=== PATIENT | male | born 1960 | race Caucasian/White ===

== ENCOUNTER 2017-04-23 07:45 | Day surgery (SDC) | payer BC ==
[2017-04-23 08:42] VITALS: BMI 32.5
[2017-04-23] MEDS ORDERED: Iodixanol 320 MG/ML 200 ML BOTTLE IV ONE (09:00)
[2017-04-23 09:01] LABS: PROTHROMBIN TIME 11.2 SECONDS (9.7-12.2)
[2017-04-23] MEDS ORDERED: Lidocaine 2% Inj (20ml) ONE (09:04)
[2017-04-23] MEDS ORDERED: Midazolam 2 MG/2 ML VIAL ONE (09:19)
[2017-04-23] MEDS ORDERED: Sodium Chloride 0.9% 1,000 ML IV SCH (10:15)
[2017-04-23] MEDS ORDERED: Sodium Chloride 0.9% 1,000 ML IV ONE (12:02)
[2017-04-23 14:23] VITALS: O2SAT 95
[2017-04-23 16:22] VITALS: BP 113/65; PULSE 82; RESP 16; TEMP 97.2
--- NOTE | 2017-04-26 10:41 | CARDCATH ---
PROCEDURE DATE: 04/23/2017 PROCEDURES: 1. Left heart catheterization. 2. Coronary angiogram. 3. RACHEL angiogram. 4. SVG graft angiogram. 5. Radiological supervision and radiological interpretation of the cardiac catheterization. CLINICAL INDICATIONS: 1. Chest pain. 2. Abnormal stress test. 3. Hypertension. 4. Hyperlipidemia. 5. History of CABG x3 in 2016. REFERRING PHYSICIAN: Gabriel Nguyen MD PERFORMING PHYSICIAN: Hans Singh MD PROCEDURE: After informed consent, the patient was prepped and draped in the usual sterile fashion. A 2% lidocaine was given in the right groin for local anesthesia. Using micropuncture technique, a 6-Irish sheath was introduced into right common femoral artery. A JL4, 6-Irish diagnostic catheter was engaged into left main coronary artery. Contrast injected and left coronary angiogram was performed. Using the JR4 diagnostic catheter, right coronary angiogram, saphenous venous graft angiogram and RACHEL angiogram were performed. Then JR4 diagnostic catheter was passed into the left ventricle across the aortic valve. Contrast injected and LV angiogram was performed. LVEDP and pressure gradient across the aortic valve were measured. The patient tolerated the procedure well. FINDINGS: 1. Left main coronary artery is patent. 2. Proximal LAD is patent, mid to distal LAD has diffuse 90% stenosis. D1 diagonal artery has 100% occlusion. 3. Left circumflex coronary artery is patent, however, large obtuse marginal branch has 100% occlusion. 4. Right coronary artery is totally occluded at the ostium. There is in-stent restenosis. The patient has left to right collaterals. 5. Saphenous vein graft to diagonal branch is patent. 6. Saphenous vein graft to obtuse marginal 1 artery is patent. 7. RACHEL to LAD graft is patent. 8. LV ejection fraction is approximately 60%. No wall motion abnormalities detected. EDP is 15. No gradient across the aortic valve. CONCLUSION: 1. CAD, status post CABG x3. All the 3 grafts are patent. 2. Right coronary artery is 100% occluded. There are left to right collaterals. RECOMMENDATION: The patient is asymptomatic on optimal medical therapy. Continue medical therapy. However, the patient has symptoms, considered intervening right coronary artery. Hans Singh MD [facility] # [id number]
== END 2017-04-23 16:44 | disposition home or self-care (01) ==
LOC: C.CATHLAB 07:45
PROVIDERS: ATTEND Internal Medicine Cardiovascular Disease
DX: R07.9 Chest pain, unspecified (principal); R94.39 Abnormal result of other cardiovascular function study; I10 Essential (primary) hypertension; Z95.1 Presence of aortocoronary bypass graft; E78.5 Hyperlipidemia, unspecified; I25.10 Atherosclerotic heart disease of native coronary artery without angina pectoris; R06.02 Shortness of breath; F17.210 Nicotine dependence, cigarettes, uncomplicated
CPT/HCPCS: 36415; 85610; 85730; 93459; C1769; C1887; C1893; J1644; J2250; J3010; J7040; Q9966

== ENCOUNTER 2018-07-12 08:56 | Inpatient (IN) | payer BC ==
[2018-07-12 08:57] VITALS: BMI 32.5
--- NOTE | 2018-07-12 09:41 | C.PDOC ---
History Of Present Illness 58 y/o male presents to the ER requesting detox from ETOH and Nyquil. Patient states that he drinks ETOH and Nyquil everyday, and reports that he began to drink Nyquil so he can sleep at night (works long hours during the day). Eloisa ent denies suicidal/homicidal ideations, or current physical complaints. Patient has PMhx of HTN, CAD s/p CABG, and DM II. Time Seen by Provider: 07/12/18 09:08 Chief Complaint (Nursing): Substance Abuse History Per: Patient History/Exam Limitations: no limitations Onset/Duration Of Symptoms: Persistent Current Symptoms Are (Timing): Still Present Modifying Factor(s): Alcohol, Other (nyquil) Severity: Moderate Past Medical History Reviewed: Historical Data, Nursing Documentation, Vital Signs Vital Signs: Last Vital Signs Temp 97.6 F 07/12/18 09:01 Pulse 72 07/12/18 09:01 Resp 18 07/12/18 09:01 BP 150/92 H 07/12/18 09:01 Pulse Ox 97 07/12/18 09:01 Primary Care Provider: Gabriel Nguyen - Medical History PMH: Anemia, COPD, Diabetes, Hypercholesterolemia Surgical History: CABG (2013), Coronary Stent - [facility] Procedures CENTRAL VENOUS CATHETER PLACEMENT WITH GUIDANCE (12/01/13) CONTINUOUS INVASIVE MECHANICAL VENTILATION =/>96 CONSEC HRS (12/01/13) ENTERAL INFUSION OF CONCENTRATED NUT. SUBSTANCES (12/01/13) INFUSION OF VASOPRESSOR AGENT (12/01/13) INSERT ENDOTRACHEAL TUBE (12/01/13) PACKED CELL TRANSFUSION (12/01/13) PERCUTANEOUS ABDOMINAL DRAINAGE (12/01/13) SERUM TRANSFUSION NEC (12/01/13) Family History: States: No Known Family Hx - Social History Hx Tobacco Use: Yes Hx Alcohol Use: Yes (6-8 beers daily) Hx Substance Use: Yes (HX: ALCOHOL ABUSE) Review Of Systems Constitutional: Negative for: Fever, Chills Cardiovascular: Negative for: Chest Pain, Palpitations Respiratory: Negative for: Shortness of Breath Gastrointestinal: Negative for: Nausea, Vomiting, Abdominal Pain, Diarrhea Skin: Negative for: Rash Psych: Negative for: Suicidal ideation Physical Exam - Physical Exam Appears: Well, Non-toxic, No Acute Distress, Other ((+) ETOH on breath) Skin: Normal Color, Warm, Dry Head: Atraumatic, Normacephalic Eye(s): bilateral: Normal Inspection, PERRL, EOMI Oral Mucosa: Moist Neck: Supple Chest: Symmetrical Cardiovascular: Rhythm Regular Respiratory: Normal Breath Sounds, No Rales, No Rhonchi, No Wheezing Gastrointestinal/Abdominal: Normal Exam, Bowel Sounds, Soft, No Tenderness Extremity: Normal ROM, No Deformity Pulses: Left Dorsalis Pedis: Normal, Right Dorsalis Pedis: Normal Neurological/Psych: Oriented x3, Normal Speech, Other (no tremors ) ED Course And Treatment - Laboratory Results Result Diagrams: 07/26/18 13:52 07/26/18 13:52 ECG: Interpreted By Me, Viewed By Me (NSR 68 bpm, normal axis, RBBB, no acute ST/T wave changes) ECG Rhythm: Sinus Rhythm ECG Interpretation: No Acute Changes O2 Sat by Pulse Oximetry: 97 (RA) Pulse Ox Interpretation: Normal - Radiology CXR: Interpreted by Me, Viewed By Me CXR Interpretation: Yes: No Acute Disease. No: Infiltrates Progress Note: Blood work, UA, UDS, ECG, and CXR ordered and reviewed. 12:30- Patient medically cleared. 2:30pm- Patient is clinically sober at this time. Disposition - Disposition Disposition: HOSPITALIZED Disposition Time: 15:32 Condition: STABLE - Clinical Impression Clinical Impression: Alcohol dependence - Scribe Statement The provider has reviewed the documentation as recorded by the Hermelindaibsara Gonzalez Provider Attestation: All medical record entries made by the Scribe were at my direction and personally dictated by me. I have reviewed the chart and agree that the record accurately reflects my personal performance of the history, physical exam, medical decision making, and the department course for this patient. I have also personally directed, reviewed, and agree with the discharge instructions and disposition. Decision To Admit - Pt Status Changed To: Hospital Disposition Of: Inpatient - Admit Certification Admit to Inpatient:: After my assessment, the patient will require hospitalization for at least two midnights. This is because of the severity of symptoms shown, intensity of services needed, and/or the medical risk in this patient being treated as an outpatient. - InPatient: Physician Admission Certification: I certify that this patient requires 2 or more midnights of care for the following reason:: see notes - . Bed Request Type: Detox Admitting Physician: Flores Carney Patient Diagnosis: AA (alcohol abuse), Alcohol dependence
[2018-07-12 10:43] LABS: BASO % 0.8 % (0.0-2.0); EOS % 0.8 % (0.0-4.0); LYMPH % 28.3 % (20.0-40.0); MEAN CELL VOLUME 98.7 fL (80.0-94.0); MEAN CORPUSCULAR HEMOGLOBIN 34.4 pg (27.0-31.0); MEAN CORPUSCULAR HGB CONC 34.9 g/dL (33.0-37.0); MONO # 0.4 K/uL (0.0-0.8); MONO % 10.5 % (0.0-10.0); NEUT # 2.1 K/uL (1.8-7.0); NEUT % 59.6 % (50.0-75.0); NRBC % 0.2 % (0.0-2.0); RBC 4.57 Mil/uL (4.40-5.90); RED CELL DISTRIBUTION WIDTH 16.9 % (11.5-14.5); WHITE BLOOD COUNT 3.5 K/uL (4.8-10.8)
[2018-07-12 10:52] LABS: HEMOGLOBIN 15.7 g/dL (12.0-18.0)
[2018-07-12 11:07] LABS: ALB/GLOB RATIO 0.8 (1.0-2.1); ALBUMIN 4.1 g/dL (3.5-5.0); ALT/SGPT 119 U/L (21-72); AST/SGOT 335 U/L (17-59); BLOOD UREA NITROGEN 10 mg/dL (9-20); CALCIUM 8.1 mg/dl (8.6-10.4); GFR NON-AFRICAN AMERICAN > 60
[2018-07-12 11:26] LABS: SQUAMOUS EPITHIAL 1 /hpf (0-5); URINE BILIRUBIN 2+ (NEGATIVE); URINE BLOOD 1+ (NEGATIVE); URINE CLARITY Hazy (Clear); URINE COLOR Amber (YELLOW); URINE GLUCOSE (UA) NORMAL (Normal); URINE LEUKOCYTE ESTERASE NEG Leu/uL (Negative); URINE PROTEIN 1+ mg/dL (NEGATIVE)
--- NOTE | 2018-07-12 11:56 | RAD ---
Date of service: 07/12/2018 PROCEDURE: CHEST RADIOGRAPH, 1 VIEW HISTORY: MED CLEARANCE COMPARISON: 12/15/2013 FINDINGS: LUNGS: Clear. PLEURA: No pneumothorax or pleural fluid seen. CARDIOVASCULAR: No aortic atherosclerotic calcification present. Normal heart size. Sternotomy wires noted common not present on prior examination. Congestive change. OSSEOUS STRUCTURES: No significant abnormalities. VISUALIZED UPPER ABDOMEN: Normal. OTHER FINDINGS: None. IMPRESSION: No active disease.
[2018-07-12 12:03] LABS: BARBITURATES, UR NEGATIVE (NEGATIVE); BENZODIAZEPINES, UR NEGATIVE (NEGATIVE); OPIATES, UR NEGATIVE (NEGATIVE); PHENCYCLIDINE, UR NEGATIVE (NEGATIVE)
--- NOTE | 2018-07-12 15:49 | PCM.BM ---
Treatment Plan Problems - Problems identified on initial assessmt Defensive Coping Date Initiated: 07/12/18 Time Initiated: 15:49 Assessment reference: NA Status: Active Knowledge Deficit: Alcohol Use Date Initiated: 07/12/18 Time Initiated: 15:49 Assessment reference: NA Status: Active Denial Date Initiated: 07/12/18 Time Initiated: 15:49 Assessment reference: NA Status: Active Treatment assets and liabiliti Patient Assests: cooperative, negotiates basic needs Patient Liabilities: substance abuse - Milieu Protocol Maintain good personal hygiene: daily Encourage regular showers, daily Remind patient to perform daily oral care, daily Assist patient to perform ADL's Conduct patient checks and document Observation sheet: Q15 minutes Maintain personal safety: every shift Educate patient to report safety concerns to staff, every shift Monitor environment for contraband/sharps Medication safety: Monitor for expected outcome, potential side effects: every shift, Assess barriers to learning: every shift, Assess readiness for medication education: every shift
[2018-07-12] MEDS: Multiple Vitamins Tab PO SCH (17:31)
[2018-07-13] MEDS: Multiple Vitamins Tab PO SCH (09:31)
--- NOTE | 2018-07-13 11:07 | PCM.PSYCH ---
Initial Psychiatric Evaluation - Initial Psychiatric Evaluation Type of Admission: Voluntary Legal Status: Capacity Chief Complaint (in patient's own words): I came here to get help. History of Present Illness and Precipitating Events: Patient is a 58 year old male, who lives alone, came to the [facility] ED to get help in detox for NyQuil and alcohol. Patient denies any past history of any inpatient psychiatric complications. He denies any history of follow-up with any psychiatrist. He reports history of one detoxes at [facility] more than 7 years ago. Patient reports that he has been drinking alcohol and abusing increasing amount of NyQuil. He reports of drinking more than 3 glasses of wine and only 2 glasses of beers daily. He reports that yesterday consumed 2 glasses appears along with 2 bottles of NyQuil, started shaking and developed withdrawal symptoms, so he came to the [facility] to get help. Patient reports he has had a DUI in 1989. Patient reports his longest period of abstinence was 5 years. When asked about family history of substance abuse, patient stated "In [place], everyone drinks. My family and my friends." He reports withdrawal symptoms including anxiety, shakes, sweating, headaches and cramps. However he denies any evidence of hopelessness or helplessness. He denies any suicidal ideation for evaluation. He denies any auditory hallucinations or any paranoia. He reports of smoking marijuana in the past but denies any other substance abuse. Past medical history History of an unknown heart condition Current Medications: Active Medications Generic Name Dose Route Start Last Admin Trade Name Freq PRN Reason Stop Dose Admin Clonidine HCl 0.1 mg 07/12/18 17:13 Catapres PO Q4H PRN Symptoms of alcohol withdrawl Folic Acid 1 mg 07/12/18 17:15 07/13/18 09:31 Folic Acid PO 1 mg DAILY TEZ Administration Lorazepam 2 mg 07/12/18 17:50 07/13/18 07:51 Ativan PO 07/17/18 17:49 2 mg Q4 TEZ Administration Taper Lorazepam 1 mg 07/12/18 18:19 07/13/18 09:32 Ativan PO 1 mg Q4H PRN Administration Symptoms of alcohol withdrawl Multivitamins 1 tab 07/12/18 17:15 07/13/18 09:31 Hexavitamin PO 1 tab DAILY TEZ Administration Thiamine HCl 100 mg 07/12/18 17:15 07/13/18 09:31 Vitamin B1 Tab PO 100 mg DAILY TEZ Administration Trazodone HCl 50 mg 07/12/18 17:13 07/12/18 23:19 Desyrel PO 50 mg HS PRN Administration Insomnia Past Psychiatric History - Past Psychiatric History Previous Treatment History: Inpatient Pertinent Medical Hx (Current Medical&Sleep Prob, Allergies): Allergies Allergy/AdvReac Type Severity Reaction Status Date / Time No Known Allergies Allergy Unverified 12/01/13 07:01 Unobtainable 07/12/18 Review of Systems - Review of Systems All systems: reviewed and no additional remarkable complaints except - Psychiatric Psychiatric: Anxiety, Irritability. absent: Auditory Hallucinations, Suicidal Ideation Mental Status Examination - Personal Presentation Personal Presentation: Looks stated age - Affect Affect: Constricted - Motor Activity Motor Activity: Calm - Reliability in Providing Information Reliability in Providing Information: Fair - Speech Speech: Organized - Mood Mood: Anxious - Formal Thought Process Formal Thought Process: No Impairment - Obsessions/Compulsions Obsessions: No Compulsions: No - Cognitive Functions Orientation: Person, Place, Situation, Time Sensorium: Alert Attention/Concentration: Attentive Abstract Thinking: [place] Estimate of Intelligence: Below average Judgement: Imparied, as evidence by: Poor judgement, Imparied, as evidence by: Lack of insight into illness - Risk Risk: Withdrawal, Diminished functioning - Limitations Limitations: Living alone DSM 5 DX - DSM 5 DSM 5 Diagnosis: Alcohol use disorder severe Alcohol withdrawal NyQuil abuse (Dextromethorphan abuse) - Recommended/Plan of Treatment Treatment Recommendations and Plan of Treatment: Alcohol use disorder severe Alcohol withdrawal NyQuil abuse (Dextromethorphan abuse) CBT Supportive therapy Ativan taper for alcohol withdrawal Withdrawal medications including folic acid/multivitamin/thiamine Trazodone for insomnia Neurontin for augmentation Hydroxyzine for anxiety - Smoking Cessation Smoking Cessation Initiated: No
--- NOTE | 2018-07-13 12:07 | CARD ---
APPROVED REPORT Date of service: 07/12/2018 EKG Measurement Heart [id number] <Conclusion> Normal sinus rhythm RSR' or QR pattern in V1 suggests right ventricular conduction delay Anterior infarct, age undetermined Abnormal ECG
[2018-07-14] MEDS ORDERED: Aluminum Hydroxide/Magnesium Hydroxide Susp (30 mL) PO PRN (00:27)
[2018-07-14] MEDS: Multiple Vitamins Tab PO SCH (09:16)
--- NOTE | 2018-07-14 13:54 | PCM.PYCHPN ---
Psychiatric Progress Note - Psychiatric Progress Note Patient seen today, length of contact: 16 min Patient Chief Complaint: "OK" Problems Identified/Issues Discussed: The pt is seen, chart reviewed, case discussed with staff. Support given, psycho-education provided. However, he is confused and lethargic. He is disoriented, mumbles to self, likely hallucinating at times. DT treatment in place, except for fluids - medicine consult requested for that, plus he cannot swallow - he was about to aspirate 1:[address] Medication Change: Yes (detox changes daily) Medical Record Reviewed: Yes Mental Status Examination - Cognitive Function Orientation: Situation (disoriented) Memory: Impaired Attention: Poor Concentration: Poor Association: Loose Fund of Knowledge: WNL - Mood Mood: Anxious - Affect Affect: Constricted - Speech Speech: Slurred - Formal Thought Process Formal Thought Process: Loosening of associations - Suicidal Ideation Suicidal Ideation: No - Homicidal Ideation Homicidal Ideation: No Goal/Treatment Plan - Goal/Treatment Plan Need for Continued Stay: Discharge may exacerbated symptoms, Severe functional impairment, Other (in DT) Progress Toward Problem(s) and Goals/Treatment Plan: Continue ativan taper Give prn ativanfor breakthru sxs 1:1 Med consult appreciated Support, hydration
--- NOTE | 2018-07-14 14:15 | CP.PCM.CON ---
History of Present Illness - History of Present Illness History of Present Illness: CONSULTED FOR DYSPHAGIA PT HAS NOT EATEN FOR FEW DAYS ALCOHOL DTS TRANSFER TO MEDICAL FLOOR Past Patient History - Past Medical History & Family History Past Medical History?: Yes - Past Social History Smoking Status: Heavy Smoker > 10 Cigarettes Daily - CARDIAC Hx Hypertension: Yes - PULMONARY Hx Chronic Obstructive Pulmonary Disease (COPD): Yes - NEUROLOGICAL Hx Neurological Disorder: No - HEENT Hx HEENT Problems: No - RENAL Hx Chronic Kidney Disease: No - ENDOCRINE/METABOLIC Hx Diabetes Mellitus Type 2: Yes - HEMATOLOGICAL/ONCOLOGICAL Hx Anemia: Yes - MUSCULOSKELETAL/RHEUMATOLOGICAL Hx Falls: No - GASTROINTESTINAL Hx Gastrointestinal Disorders: Yes Other/Comment: HX: ASCITES - PSYCHIATRIC Hx Substance Use: Yes - SURGICAL HISTORY Hx Coronary Artery Bypass Graft: Yes (2013) Hx Coronary Stent: Yes - ANESTHESIA Hx Anesthesia: Yes Hx Anesthesia Reactions: No Hx Malignant Hyperthermia: No Meds Allergies/Adverse Reactions: Allergies Allergy/AdvReac Type Severity Reaction Status Date / Time No Known Allergies Allergy Unverified 12/01/13 07:01 - Medications Medications: Current Medications Al Hydrox/Mg Hydrox/Simethicone (Maalox 30 Ml) 30 ml PO TID PRN PRN Reason: Indigestion / Heartburn Clonidine HCl (Catapres) 0.1 mg PO Q4H PRN PRN Reason: Symptoms of alcohol withdrawl Last Admin: 07/13/18 19:15 Dose: 0.1 mg Folic Acid (Folic Acid) 1 mg PO DAILY [facility] Last Admin: 07/14/18 09:16 Dose: 1 mg Gabapentin (Neurontin) 100 mg PO TID [facility] Last Admin: 07/14/18 13:02 Dose: 100 mg Loperamide HCl (Imodium) 2 mg PO Q8 PRN PRN Reason: Diarrhea Lorazepam (Ativan) 2 mg PO Q4 [facility]; Taper Stop: 07/17/18 17:49 Last Admin: 07/14/18 12:51 Dose: 2 mg Lorazepam (Ativan) 1 mg PO Q4H PRN PRN Reason: Symptoms of alcohol withdrawl Last Admin: 07/13/18 09:32 Dose: 1 mg Multivitamins (Hexavitamin) 1 tab PO DAILY [facility] Last Admin: 07/14/18 09:16 Dose: 1 tab Nicotine (Nicoderm Cq) 1 patch TD DAILY [facility] Last Admin: 07/14/18 09:17 Dose: 1 patch Ondansetron HCl (Zofran Tab) 4 mg PO Q8 PRN PRN Reason: Nausea/Vomiting Thiamine HCl (Vitamin B1 Tab) 100 mg PO DAILY TEZ Last Admin: 07/14/18 09:16 Dose: 100 mg Trazodone HCl (Desyrel) 50 mg PO HS PRN PRN Reason: Insomnia Last Admin: 07/12/18 23:19 Dose: 50 mg Results - Vital Signs Recent Vital Signs: Last Vital Signs Temp 97.6 F 07/14/18 13:30 Pulse 90 07/14/18 13:30 Resp 19 07/14/18 13:30 BP 113/71 07/14/18 13:30 Pulse Ox 94 L 07/14/18 13:30 - Labs Result Diagrams: 07/12/18 10:29 07/12/18 10:29
[2018-07-14] MEDS: Sodium Chloride 0.45% 1,000 ML IV SCH (21:28)
[2018-07-15] MEDS: Sodium Chloride 0.45% 1,000 ML IV SCH ×2 (04:47→14:49)
[2018-07-15] MEDS: Multiple Vitamins Tab PO SCH (09:29)
--- NOTE | 2018-07-15 10:23 | CP.PCM.HP ---
History of Present Illness - History of Present Illness History of Present Illness: PT WAS TRANSFERRED FROM DETOX AFTER HAVING SEVERE DYSPHAGIA PT WAS ADMITTED FOR DETOX WITH DTS PT IS POOR HISTORIAN . SINCE IN THE HOSPITAL PT HAS DEVELOPED DYSPHAGIA TO ALL FOODS NO PREVIOUS H/O DYSPHAGIA HAS H/O CIRRHOSIS OF LIVER SEC ALCOHOL. WAS ADMITTED LAST YEAR WITH RESP FAILURE HAD CATH DONE SHOWED PATENT CORONARY GRAFT 3, CABG FEW YEARS AGO PT DRINKS ALCOHOL DAILY AND THIS ADMISSION DRAMK NYQUIL Present on Admission - Present on Admission Any Indicators Present on Admission: No Review of Systems - Constitutional Constitutional: absent: As Per HPI, Anorexia, Chills, Daytime Sleepiness, Excessive Sweating, Fatigue, Fever, Frequent Falls, Headache, Increased Appetite, Lethargy, Malaise, Night Sweats, Snoring, Sleep Apnea, Weight Gain, Weight Loss, Weakness, Other - EENT Ears: absent: As Per HPI, Decreased Hearing, Ear Discharge, Ear Pain, Tinnitus, Abnormal Hearing, Disequilibrium, Dizziness, Other Nose/Mouth/Throat: Dysphagia. absent: Mouth Pain, Throat Swelling - Cardiovascular Cardiovascular: absent: As Per HPI, Acrocyanosis, Chest Pain, Chest Pain at Rest, Chest Pain with Activity, Claudication, Diaphoresis, Dyspnea, Dyspnea on Exertion, Edema, Irregular Heart Rhythm, Pain Radiating to Arm/Neck/Jaw, Leg Edema, Leg Ulcers, Lightheadedness, Orthopnea, Palpitations, Paroxysmal Nocturnal Dyspnea, Pedal Edema, Radiating Pain, Rapid Heart Rate, Slow Heart Rate, Syncope, Other - Gastrointestinal Gastrointestinal: absent: As Per HPI, Abdominal Pain, Belching, Bloating, Change in Bowel Habits, Change in Stool Character, Coffee Ground Emesis, Constipation, Cramping, Diarrhea, Dyspepsia, Dysphagia, Early Satiety, Excessive Flatus, Fecal Incontinence, Heartburn, Hematemesis, Hematochezia, Loose Stools, Melena, Nausea, Odynophagia, Temesmus, Vomiting, Other - Genitourinary Genitourinary: absent: As Per HPI, Change in Urinary Stream, Difficulty Urinating, Dysuria, Flank Pain, Hematuria, Pyuria, Nocturia, Urinary Incontinence, Urinary Frequency, Urinary Hesitance, Urinary Urgency, Voiding Freq/Small Amts, Freq UTI, Hx Renal/Bladder Calculi, Hx /Renal Surgery, Bladder Distension, Other - Musculoskeletal Musculoskeletal: absent: As Per HPI, Abnormal Gait, Arthralgias, Atrophy, Back Pain, Deformity, Joint Swelling, Limited Range of Motion, Loss of Height, Muscle Cramps, Muscle Weakness, Myalgias, Neck Pain, Numbness, Radiating Pain into Limb, Stiffness, Tingling, Other - Neurological Neurological: Disequilibrium, Dizziness, Memory Loss, Radicular Pain, Tingling, Tremor Past Patient History - Past Medical History & Family History Past Medical History?: Yes - Past Social History Smoking Status: Former Smoker - CARDIAC Hx Hypertension: Yes - PULMONARY Hx Chronic Obstructive Pulmonary Disease (COPD): Yes - NEUROLOGICAL Hx Neurological Disorder: No - HEENT Hx HEENT Problems: No - RENAL Hx Chronic Kidney Disease: No - ENDOCRINE/METABOLIC Hx Diabetes Mellitus Type 2: Yes - HEMATOLOGICAL/ONCOLOGICAL Hx Anemia: Yes - MUSCULOSKELETAL/RHEUMATOLOGICAL Hx Falls: No - GASTROINTESTINAL Hx Gastrointestinal Disorders: Yes Other/Comment: HX: ASCITES - PSYCHIATRIC Hx Substance Use: Yes - SURGICAL HISTORY Hx Coronary Artery Bypass Graft: Yes (2013) Hx Coronary Stent: Yes - ANESTHESIA Hx Anesthesia: Yes Hx Anesthesia Reactions: No Hx Malignant Hyperthermia: No Meds Allergies/Adverse Reactions: Allergies Allergy/AdvReac Type Severity Reaction Status Date / Time No Known Allergies Allergy Unverified 12/01/13 07:01 Results - Vital Signs Recent Vital Signs: Last Vital Signs Temp 97.8 F 07/15/18 07:00 Pulse 98 H 07/15/18 07:00 Resp 20 07/15/18 07:00 BP 130/76 07/15/18 07:00 Pulse Ox 94 L 07/15/18 07:00 - Labs Result Diagrams: 07/12/18 10:29 07/12/18 10:29 Assessment & Plan (1) Dysphagia Status: Acute Comment: GI W/P (2) CAD (coronary artery disease) Status: Acute (3) Cirrhosis of liver Status: Acute Priority: High (4) Diabetes Status: Acute (5) HTN (hypertension) Status: Acute
--- NOTE | 2018-07-15 11:04 | PCM.PYCHPN ---
Psychiatric Progress Note - Psychiatric Progress Note Patient seen today, length of contact: 16 min Patient Chief Complaint: No c/c Seen as a f/u Problems Identified/Issues Discussed: The pt is seen, chart reviewed, case discussed with staff. Support given, psycho-education provided. Less confused - knew few orientation questions ([place], 2019) but not the majority. 3/3 retention is OK, then 1/3 in recall Still having swallowing issues, likely due to varices, alcohol induced Medication Change: Yes (detox changes daily) Medical Record Reviewed: Yes Mental Status Examination - Cognitive Function Orientation: Situation (disoriented) Memory: Impaired Attention: Poor Concentration: Poor Association: Loose Fund of Knowledge: WNL - Mood Mood: Anxious - Affect Affect: Constricted - Speech Speech: Slurred - Formal Thought Process Formal Thought Process: Loosening of associations - Suicidal Ideation Suicidal Ideation: No - Homicidal Ideation Homicidal Ideation: No Goal/Treatment Plan - Goal/Treatment Plan Need for Continued Stay: Discharge may exacerbated symptoms, Severe functional impairment, Other (in DT) Progress Toward Problem(s) and Goals/Treatment Plan: Continue ativan taper Give prn ativanfor breakthru sxs 1:1 Med consult appreciated Support, hydration
[2018-07-15] MEDS ORDERED: Barium Sulfate for Susp 98% w/w 340g Bottle ONE (11:10)
--- NOTE | 2018-07-15 13:50 | CT ---
Date of service: 07/15/2018 PROCEDURE: CT HEAD WITHOUT CONTRAST. HISTORY: difficulty swallowing / r/o related to brain dys COMPARISON: None available. TECHNIQUE: Axial computed tomography images were obtained through the head/brain without intravenous contrast. Radiation dose: Total exam DLP = 1570.88 mGy-cm. This CT exam was performed using one or more of the following dose reduction techniques: Automated exposure control, adjustment of the mA and/or kV according to patient size, and/or use of iterative reconstruction technique. FINDINGS: HEMORRHAGE: No intracranial hemorrhage. BRAIN: There are mild chronic microangiopathic changes. There is no mass, mass effect or abnormal extra-axial fluid collection. There is no territorial infarction. The midline sagittal structures are normal. VENTRICLES: There is mild age-related global parenchymal volume loss and proportionate enlargement of the ventricles and cortical sulci. CALVARIUM: There is no calvarial fracture or extracranial soft tissue swelling. PARANASAL SINUSES: There is mild polypoid mucosal thickening in the right maxillary sinus. The remaining included paranasal sinuses are clear. There is a right middle turbinate adam bullosa. MASTOID AIR CELLS: Predominantly clear. OTHER FINDINGS: None. IMPRESSION: No acute intracranial abnormality. Mild chronic microangiopathic changes and mild age-related global parenchymal volume loss.
--- NOTE | 2018-07-15 16:11 | RAD ---
Date of service: 07/15/2018 PROCEDURE: Modified barium swallow study. HISTORY: Difficulty swallowing COMPARISON: None available. TECHNIQUE: Under fluoroscopic guidance, the patient ingested various consistencies of barium. Examination was performed in conjunction with speech pathology department. FINDINGS: On the lateral projection, the epiglottis, airways and prevertebral soft tissues appear normal. There was significant residual in the vallecula with various consistencies of barium with puree. There was also transient aspiration from the residue and deep laryngeal penetration. The total fluoroscopic time was 3 minutes. IMPRESSION: Transient aspiration and deep laryngeal penetration puree, significant residual with various consistencies of barium. Please refer to the detailed report and recommendations of the speech pathologist.
--- NOTE | 2018-07-15 16:54 | CP.PCM.CON ---
<Juliette Chung - Last Filed: 07/15/18 16:50> History of Present Illness - History of Present Illness History of Present Illness: GI Fellow PGY5 Consult Note This is a 58yM with pmhx of decompensated cirrhosis, GI bleeding, alcohol abuse, CAD s/p CABAG being admitted for etoh detox. Pt was transferred to medical floor and found to have dysphagia. Pt reports drinking 4 beers daily and hard liquor on weekends for years. Per EMR he was also abusing Nyquil with etoh. Pt had a parcentesis in 2013 per EMR but dneies any further ascites. Barium evaluation shows oropharyngeal pathology, no barium seen in esophagus as pt cant swallow. ROS: A 12pt ROS was negative except as above PmHX: As stated in HPI PsHx: cardiac cabag FHx: Denies GI malignancy SH: etog daily, tobacco, neg drugs Past Patient History - Past Medical History & Family History Past Medical History?: Yes - Past Social History Smoking Status: Former Smoker - CARDIAC Hx Hypercholesterolemia: Yes - PULMONARY Hx Chronic Obstructive Pulmonary Disease (COPD): Yes - NEUROLOGICAL Hx Neurological Disorder: No - HEENT Hx HEENT Problems: No - RENAL Hx Chronic Kidney Disease: No - ENDOCRINE/METABOLIC Hx Diabetes Mellitus Type 2: Yes - HEMATOLOGICAL/ONCOLOGICAL Hx Anemia: Yes - MUSCULOSKELETAL/RHEUMATOLOGICAL Hx Falls: No - GASTROINTESTINAL Hx Gastrointestinal Disorders: Yes Other/Comment: HX: ASCITES - PSYCHIATRIC Hx Substance Use: Yes - SURGICAL HISTORY Hx Coronary Artery Bypass Graft: Yes (2013) Hx Coronary Stent: Yes - ANESTHESIA Hx Anesthesia: Yes Hx Anesthesia Reactions: No Hx Malignant Hyperthermia: No Meds Allergies/Adverse Reactions: Allergies Allergy/AdvReac Type Severity Reaction Status Date / Time No Known Allergies Allergy Unverified 12/01/13 07:01 - Medications Medications: Current Medications Al Hydrox/Mg Hydrox/Simethicone (Maalox 30 Ml) 30 ml PO TID PRN PRN Reason: Indigestion / Heartburn Clonidine HCl (Catapres) 0.1 mg PO Q4H PRN PRN Reason: Symptoms of alcohol withdrawl Last Admin: 07/13/18 19:15 Dose: 0.1 mg Folic Acid (Folic Acid) 1 mg PO DAILY [facility] Last Admin: 07/15/18 09:29 Dose: 1 mg Gabapentin (Neurontin) 100 mg PO TID [facility] Last Admin: 07/15/18 14:12 Dose: Not Given Sodium Chloride (Sodium Chloride 0.45%) 1,000 mls @ 120 mls/hr IV .Q8H20M [facility] Last Admin: 07/15/18 14:49 Dose: 120 mls/hr Loperamide HCl (Imodium) 2 mg PO Q8 PRN PRN Reason: Diarrhea Lorazepam (Ativan) 1 mg PO Q4 [facility]; Taper Stop: 07/17/18 17:49 Last Admin: 07/15/18 16:06 Dose: Not Given Lorazepam (Ativan) 1 mg PO Q4H PRN PRN Reason: Symptoms of alcohol withdrawl Last Admin: 07/13/18 09:32 Dose: 1 mg Metoclopramide HCl (Reglan) 10 mg IVP Q8H [facility] Last Admin: 07/15/18 12:37 Dose: 10 mg Multivitamins (Hexavitamin) 1 tab PO DAILY [facility] Last Admin: 07/15/18 09:29 Dose: 1 tab Nicotine (Nicoderm Cq) 1 patch TD DAILY [facility] Last Admin: 07/15/18 09:30 Dose: 1 patch Ondansetron HCl (Zofran Tab) 4 mg PO Q8 PRN PRN Reason: Nausea/Vomiting Thiamine HCl (Vitamin B1 Tab) 100 mg PO DAILY [facility] Last Admin: 07/15/18 09:29 Dose: 100 mg Trazodone HCl (Desyrel) 50 mg PO HS PRN PRN Reason: Insomnia Last Admin: 07/12/18 23:19 Dose: 50 mg Physical Exam - Constitutional Appears: Non-toxic, No Acute Distress, Confused, Chronically Ill - Head Exam Head Exam: ATRAUMATIC, NORMAL INSPECTION, NORMOCEPHALIC - Eye Exam Eye Exam: EOMI, Normal appearance, PERRL - ENT Exam ENT Exam: Mucous Membranes Dry, Normal Exam - Neck Exam Neck exam: Positive for: Full Rom - Respiratory Exam Respiratory Exam: Clear to Auscultation Bilateral, NORMAL BREATHING PATTERN - Cardiovascular Exam Cardiovascular Exam: REGULAR RHYTHM, RRR, +S1, +S2 - GI/Abdominal Exam GI & Abdominal Exam: Normal Bowel Sounds, Soft. absent: Distended, Firm, Guarding, Organomegaly, Tenderness - Rectal Exam Rectal Exam: Deferred - Extremities Exam Extremities exam: Positive for: full ROM, normal inspection - Neurological Exam Neurological exam: Alert, Oriented x3 - Psychiatric Exam Psychiatric exam: Flat Affect, Normal Mood - Skin Skin Exam: Dry, Intact, Normal Color, Warm Results - Vital Signs Recent Vital Signs: Last Vital Signs Temp 97.8 F 07/15/18 07:00 Pulse 98 H 07/15/18 07:00 Resp 20 07/15/18 07:00 BP 130/76 07/15/18 07:00 Pulse Ox 94 L 07/15/18 07:00 - Labs Result Diagrams: 07/12/18 10:29 07/12/18 10:29 Assessment & Plan - Assessment and Plan (Free Text) Assessment: 1. Alcoholic Cirrhosis 2. Thrombocytopenia 3. Dysphagia 4. Alcohol abuse 5. Elevated LFTs Plan: -Contineu supportive care with IVF hydration -Barium reviewed, Diet per swallow evaluation, recommend PPN -NO NGT due to Cirrhosis and possible VARICES -Will order Abd US for HCC screening -Will order Hep C antibody -Pt will need EGD Wednesday if dysphagia not improved -Will continue to follow pt <Jozef Chamberlain - Last Filed: 07/15/18 17:15> Meds - Medications Medications: Current Medications Al Hydrox/Mg Hydrox/Simethicone (Maalox 30 Ml) 30 ml PO TID PRN PRN Reason: Indigestion / Heartburn Clonidine HCl (Catapres) 0.1 mg PO Q4H PRN PRN Reason: Symptoms of alcohol withdrawl Last Admin: 07/13/18 19:15 Dose: 0.1 mg Folic Acid (Folic Acid) 1 mg PO DAILY [facility] Last Admin: 07/15/18 09:29 Dose: 1 mg Gabapentin (Neurontin) 100 mg PO TID [facility] Last Admin: 07/15/18 14:12 Dose: Not Given Sodium Chloride (Sodium Chloride 0.45%) 1,000 mls @ 120 mls/hr IV .Q8H20M [facility] Last Admin: 07/15/18 14:49 Dose: 120 mls/hr Loperamide HCl (Imodium) 2 mg PO Q8 PRN PRN Reason: Diarrhea Lorazepam (Ativan) 1 mg PO Q4 [facility]; Taper Stop: 07/17/18 17:49 Last Admin: 07/15/18 16:06 Dose: Not Given Lorazepam (Ativan) 1 mg PO Q4H PRN PRN Reason: Symptoms of alcohol withdrawl Last Admin: 07/13/18 09:32 Dose: 1 mg Metoclopramide HCl (Reglan) 10 mg IVP Q8H [facility] Last Admin: 07/15/18 12:37 Dose: 10 mg Multivitamins (Hexavitamin) 1 tab PO DAILY [facility] Last Admin: 07/15/18 09:29 Dose: 1 tab Nicotine (Nicoderm Cq) 1 patch TD DAILY [facility] Last Admin: 07/15/18 09:30 Dose: 1 patch Ondansetron HCl (Zofran Tab) 4 mg PO Q8 PRN PRN Reason: Nausea/Vomiting Thiamine HCl (Vitamin B1 Tab) 100 mg PO DAILY [facility] Last Admin: 07/15/18 09:29 Dose: 100 mg Trazodone HCl (Desyrel) 50 mg PO HS PRN PRN Reason: Insomnia Last Admin: 07/12/18 23:19 Dose: 50 mg Results - Vital Signs Recent Vital Signs: Last Vital Signs Temp 97.8 F 07/15/18 07:00 Pulse 98 H 07/15/18 07:00 Resp 20 07/15/18 07:00 BP 130/76 07/15/18 07:00 Pulse Ox 94 L 07/15/18 07:00 - Labs Result Diagrams: 07/12/18 10:29 07/12/18 10:29 Attending/Attestation - Attestation I have personally seen and examined this patient.: Yes I have fully participated in the care of the patient.: Yes I have reviewed all pertinent clinical information: Yes Notes (Text): 07/15/18 17:09 I have seen and examined patient with GI fellow. Agree with above documentation with the following additions. In brief, this is a 58 year old male with history of CAD/CABG, decompensated ETOH cirrhosis, who was admitted to hospital for ETOH detoxification in the setting of ongoing abuse. He continues to drink nearly 3- 4 beers daily mixed with hard liquor/wine on "weekends." He is currently only oriented to person, however is able to carry on conversation. He denies abdominal pain, nausea, vomiting, fever/chills, weight loss, rectal bleeding, or change in bowel habits. He does note progressive dysphagia to liquids (particularly water) over the past 2 weeks but denies having trouble consuming solid foods. He denies regurgitation of food product or odynophagia. No prior endoscopic evaluation. CAD/CABG Decompensated ETOH cirrhosis - unable to calculate MELD, no INR available Transaminitis Dysphagia - NPO - Results of barium swallow noted with pooling of food content in pharynx - Continue with PPI therapy - Obtain abdominal US - Obtain INR - Monitor for signs of ETOH withdrawal - Consider PPN for the time being given clinical scenario - Patient would benefit from EGD evaluation, timing to be determined pending patient clinical progress
[2018-07-16] MEDS: Sodium Chloride 0.45% 1,000 ML IV SCH
[2018-07-16 06:49] LABS: BASO % 0.4 % (0.0-2.0); EOS # 0.1 K/uL (0.0-0.7); EOS % 1.9 % (0.0-4.0); LYMPH # 0.5 K/uL (1.0-4.3); LYMPH % 18.6 % (20.0-40.0); MEAN CELL VOLUME 99.1 fL (80.0-94.0); MEAN CORPUSCULAR HGB CONC 35.3 g/dL (33.0-37.0); MEAN PLATELET VOLUME 9.2 fL (7.2-11.7); MONO # 0.3 K/uL (0.0-0.8); MONO % 10.7 % (0.0-10.0); NEUT % 68.4 % (50.0-75.0); NRBC % 0.1 % (0.0-2.0); RBC 3.86 Mil/uL (4.40-5.90); WHITE BLOOD COUNT 2.9 K/uL (4.8-10.8)
[2018-07-16 06:56] LABS: INR 1.2; PROTHROMBIN TIME 13.2 SECONDS (9.7-12.2)
[2018-07-16 07:44] LABS: HEMOGLOBIN 13.5 g/dL (12.0-18.0)
[2018-07-16 07:55] LABS: ALB/GLOB RATIO 0.7 (1.0-2.1); ALBUMIN 3.3 g/dL (3.5-5.0); ALT/SGPT 94 U/L (21-72); AST/SGOT 194 U/L (17-59); BLOOD UREA NITROGEN 13 mg/dL (9-20); CALCIUM 8.3 mg/dl (8.6-10.4); GFR NON-AFRICAN AMERICAN > 60
[2018-07-16] MEDS: Multiple Vitamins Tab PO SCH (10:25)
--- NOTE | 2018-07-16 12:01 | CP.PCM.PN ---
Subjective - Date & Time of Evaluation Date of Evaluation: 07/16/18 Time of Evaluation: 11:59 - Subjective Subjective: ALERT IN NO DISTRESS VS STABLE STILL HAS DYSPHAGIA TO ALL FOOD ON IV FLUID/TPN WILL NEED EGD CONT CURRENT MANAGEMENT Objective - Vital Signs/Intake and Output Vital Signs (last 24 hours): Temp Pulse Resp BP Pulse Ox 97.9 F 91 H 20 133/89 94 L 07/16/18 07:00 07/16/18 07:00 07/16/18 07:00 07/16/18 07:00 07/16/18 07:00 Intake and Output: 07/15/18 07/16/18 23:59 11:59 Intake Total 960 Balance 960 - Medications Medications: Current Medications Al Hydrox/Mg Hydrox/Simethicone (Maalox 30 Ml) 30 ml PO TID PRN PRN Reason: Indigestion / Heartburn Clonidine HCl (Catapres) 0.1 mg PO Q4H PRN PRN Reason: Symptoms of alcohol withdrawl Last Admin: 07/13/18 19:15 Dose: 0.1 mg Folic Acid (Folic Acid) 1 mg PO DAILY [facility] Last Admin: 07/16/18 10:25 Dose: 1 mg Gabapentin (Neurontin) 100 mg PO TID [facility] Last Admin: 07/16/18 10:25 Dose: 100 mg Sodium Chloride (Sodium Chloride 0.45%) 1,000 mls @ 120 mls/hr IV .Q8H20M [facility] Last Admin: 07/16/18 00:00 Dose: 120 mls/hr Loperamide HCl (Imodium) 2 mg PO Q8 PRN PRN Reason: Diarrhea Lorazepam (Ativan) 1 mg PO Q8 [facility]; Taper Stop: 07/17/18 17:49 Last Admin: 07/16/18 05:19 Dose: 1 mg Lorazepam (Ativan) 1 mg PO Q4H PRN PRN Reason: Symptoms of alcohol withdrawl Last Admin: 07/13/18 09:32 Dose: 1 mg Metoclopramide HCl (Reglan) 10 mg IVP Q8H [facility] Last Admin: 07/16/18 05:18 Dose: 10 mg Multivitamins (Hexavitamin) 1 tab PO DAILY [facility] Last Admin: 07/16/18 10:25 Dose: 1 tab Nicotine (Nicoderm Cq) 1 patch TD DAILY [facility] Last Admin: 07/16/18 10:25 Dose: 1 patch Ondansetron HCl (Zofran Tab) 4 mg PO Q8 PRN PRN Reason: Nausea/Vomiting Thiamine HCl (Vitamin B1 Tab) 100 mg PO DAILY [facility] Last Admin: 07/16/18 10:25 Dose: 100 mg Trazodone HCl (Desyrel) 50 mg PO HS PRN PRN Reason: Insomnia Last Admin: 07/12/18 23:19 Dose: 50 mg - Labs Labs: 07/16/18 06:36 07/16/18 06:36 PT 13.2 SECONDS (9.7-12.2) H 07/16/18 06:36 INR 1.2 07/16/18 06:36 Assessment and Plan (1) Dysphagia Status: Acute (2) CAD (coronary artery disease) Status: Acute (3) Cirrhosis of liver Status: Acute (4) Diabetes Status: Acute (5) HTN (hypertension) Status: Acute
--- NOTE | 2018-07-16 15:30 | US ---
HISTORY: portal vein patency? COMPARISON: None available. TECHNIQUE: Sonographic evaluation of the abdomen. FINDINGS: LIVER: Measures 21.5 cm in sagittal dimension. Nodular hepatic contour may be seen in the setting of cirrhosis. No focal hepatic mass identified. The main portal vein appears patent with normal directional flow. Intrahepatic inferior vena cava and left, middle, and right hepatic veins appear patent with normal hepatic venous waveforms. No intrahepatic bile duct dilatation. GALLBLADDER: No gallstones. Gallbladder wall thickening/edema measuring approximately 5 mm. Negative sonographic Porter's sign as assessed by the child health associate. COMMON BILE DUCT: Measures 4 mm. PANCREAS: Not well visualized. RIGHT KIDNEY: Measures 12.6 x 5.4 x 6.2cm. No obstructing calculus or hydronephrosis identified. LEFT KIDNEY: Measures 12.8 x 6.2 x 5.9cm. No obstructing calculus or hydronephrosis identified. SPLEEN: Measures approximately 16.5 cm. AORTA: Limited views appear unremarkable. IVC: Limited views appear unremarkable. OTHER FINDINGS: None. IMPRESSION: Hepatomegaly. Nodular hepatic contour may be seen in the setting of cirrhosis. Patent hepatic vasculature with appropriate directional flow. Splenomegaly. Gallbladder wall thickening/edema measuring approximately 5 mm. No evidence of gallstones. Negative sonographic Porter's sign as assessed by the child health associate. Correlate clinically. Preliminary impression was provided by [facility].
[2018-07-16] MEDS: PPN #1 IV SCH (17:43)
--- NOTE | 2018-07-17 09:40 | CP.PCM.PN ---
<Alhaji Chance - Last Filed: 07/17/18 09:45> Subjective - Date & Time of Evaluation Date of Evaluation: 07/17/18 Time of Evaluation: 08:00 - Subjective Subjective: PGY5 GI Follow-up Pt seen and examined bedside Denies any abd pain still NPO no other complaints ROS: 12 point ROS conducted neg other than above Objective - Vital Signs/Intake and Output Vital Signs (last 24 hours): Temp Pulse Resp BP Pulse Ox 97.7 F 91 H 20 117/78 97 07/17/18 07:00 07/17/18 07:00 07/17/18 07:00 07/17/18 07:00 07/17/18 07:00 Intake and Output: 07/17/18 07/17/18 06:59 18:59 Intake Total 504 Output Total 500 Balance 4 - Medications Medications: Current Medications Al Hydrox/Mg Hydrox/Simethicone (Maalox 30 Ml) 30 ml PO TID PRN PRN Reason: Indigestion / Heartburn Clonidine HCl (Catapres) 0.1 mg PO Q4H PRN PRN Reason: Symptoms of alcohol withdrawl Last Admin: 07/13/18 19:15 Dose: 0.1 mg Folic Acid (Folic Acid) 1 mg PO DAILY [facility] Last Admin: 07/16/18 10:25 Dose: 1 mg Gabapentin (Neurontin) 100 mg PO TID [facility] Last Admin: 07/16/18 17:41 Dose: Not Given Sodium Chloride (Sodium Chloride 0.45%) 1,000 mls @ 120 mls/hr IV .Q8H20M [facility] Last Admin: 07/16/18 00:00 Dose: 120 mls/hr Multivitamins/Vitamin C 10 ml/Chromium/Copper/Manganese/Zinc 1 ml/ Amino Acids 1,011 mls @ 63 mls/hr IV .Q16H3M [facility] Last Admin: 07/16/18 17:43 Dose: 63 mls/hr Amino Acids (Clinimix 4.25/5 % "E" (1000 Ml)) 1,000 mls @ 63 mls/hr IV .[id number] ONE Stop: 07/18/18 09:52 Loperamide HCl (Imodium) 2 mg PO Q8 PRN PRN Reason: Diarrhea Last Admin: 07/17/18 05:35 Dose: 2 mg Lorazepam (Ativan) 1 mg PO Q24H [facility]; Taper Stop: 07/17/18 17:49 Last Admin: 07/16/18 17:41 Dose: Not Given Lorazepam (Ativan) 1 mg PO Q4H PRN PRN Reason: Symptoms of alcohol withdrawl Last Admin: 07/16/18 22:09 Dose: 1 mg Metoclopramide HCl (Reglan) 10 mg IVP Q8H [facility] Last Admin: 07/17/18 05:29 Dose: 10 mg Multivitamins (Hexavitamin) 1 tab PO DAILY [facility] Last Admin: 07/16/18 10:25 Dose: 1 tab Nicotine (Nicoderm Cq) 1 patch TD DAILY [facility] Last Admin: 07/16/18 10:25 Dose: 1 patch Ondansetron HCl (Zofran Tab) 4 mg PO Q8 PRN PRN Reason: Nausea/Vomiting Thiamine HCl (Vitamin B1 Tab) 100 mg PO DAILY [facility] Last Admin: 07/16/18 10:25 Dose: 100 mg Trazodone HCl (Desyrel) 50 mg PO HS PRN PRN Reason: Insomnia Last Admin: 07/12/18 23:19 Dose: 50 mg - Labs Labs: 07/16/18 06:36 07/16/18 06:36 PT 13.2 SECONDS (9.7-12.2) H 07/16/18 06:36 INR 1.2 07/16/18 06:36 - Constitutional Appears: Well, No Acute Distress - Head Exam Head Exam: ATRAUMATIC, NORMOCEPHALIC - Eye Exam Eye Exam: Normal appearance - ENT Exam ENT Exam: Mucous Membranes Moist, Normal Exam - Neck Exam Neck Exam: Normal Inspection - Respiratory Exam Respiratory Exam: Clear to Ausculation Bilateral, NORMAL BREATHING PATTERN. absent: Rales, Rhonchi, Wheezes, Respiratory Distress - Cardiovascular Exam Cardiovascular Exam: REGULAR RHYTHM, +S1, +S2 - GI/Abdominal Exam GI & Abdominal Exam: Distended, Soft, Normal Bowel Sounds. absent: Firm, Guarding, Rigid, Tenderness, Mass, Organomegaly - Extremities Exam Extremities Exam: absent: Joint Swelling, Pedal Edema - Neurological Exam Neurological Exam: Alert, Awake, Oriented x3 - Psychiatric Exam Psychiatric exam: Normal Affect, Normal Mood - Skin Skin Exam: Dry, Intact, Normal Color, Warm Assessment and Plan - Assessment and Plan (Free Text) Assessment: 1. Alcoholic Cirrhosis 2. Thrombocytopenia 3. Dysphagia 4. Alcohol abuse 5. Elevated LFTs Plan: -Contineu supportive care with IVF hydration -continue PPN -NO NGT due to Cirrhosis and possible VARICES -Pt will need EGD -repeat swallw eval today -Will continue to follow pt -U/S: cirrhosis, gb thickening, CBD normal D/w Dr. landis <Jozef Landis - Last Filed: 07/17/18 14:20> Objective - Vital Signs/Intake and Output Vital Signs (last 24 hours): Temp Pulse Resp BP Pulse Ox 97.7 F 91 H 20 117/78 97 07/17/18 07:00 07/17/18 07:00 07/17/18 07:00 07/17/18 07:00 07/17/18 07:00 Intake and Output: 07/17/18 07/17/18 06:59 18:59 Intake Total 504 Output Total 500 Balance 4 - Medications Medications: Current Medications Al Hydrox/Mg Hydrox/Simethicone (Maalox 30 Ml) 30 ml PO TID PRN PRN Reason: Indigestion / Heartburn Clonidine HCl (Catapres) 0.1 mg PO Q4H PRN PRN Reason: Symptoms of alcohol withdrawl Last Admin: 07/13/18 19:15 Dose: 0.1 mg Folic Acid (Folic Acid) 1 mg PO DAILY [facility] Last Admin: 07/17/18 10:01 Dose: 1 mg Gabapentin (Neurontin) 100 mg PO TID [facility] Last Admin: 07/17/18 14:07 Dose: 100 mg Sodium Chloride (Sodium Chloride 0.45%) 1,000 mls @ 120 mls/hr IV .Q8H20M [facility] Last Admin: 07/16/18 00:00 Dose: 120 mls/hr Amino Acids (Clinimix 4.25/5 % "E" (1000 Ml)) 1,000 mls @ 63 mls/hr IV .[id number] ONE Stop: 07/18/18 01:52 Last Admin: 07/17/18 11:23 Dose: Not Given Multivitamins/Vitamin C 10 ml/Chromium/Copper/Manganese/Zinc 1 ml/ Amino Acids 1,011 mls @ 63 mls/hr IV .Q16H3M ONE Stop: 07/18/18 10:02 Amino Acids (Clinimix 4.25/5 % "E" (1000 Ml)) 1,000 mls @ 63 mls/hr IV .[id number] ONE Stop: 07/19/18 01:52 Loperamide HCl (Imodium) 2 mg PO Q8 PRN PRN Reason: Diarrhea Last Admin: 07/17/18 05:35 Dose: 2 mg Lorazepam (Ativan) 1 mg PO Q24H [facility]; Taper Stop: 07/17/18 17:49 Last Admin: 07/16/18 17:41 Dose: Not Given Lorazepam (Ativan) 1 mg PO Q4H PRN PRN Reason: Symptoms of alcohol withdrawl Last Admin: 07/16/18 22:09 Dose: 1 mg Metoclopramide HCl (Reglan) 10 mg IVP Q8H [facility] Last Admin: 07/17/18 12:21 Dose: 10 mg Multivitamins (Hexavitamin) 1 tab PO DAILY [facility] Last Admin: 07/17/18 10:01 Dose: 1 tab Nicotine (Nicoderm Cq) 1 patch TD DAILY [facility] Last Admin: 07/17/18 10:00 Dose: 1 patch Ondansetron HCl (Zofran Tab) 4 mg PO Q8 PRN PRN Reason: Nausea/Vomiting Thiamine HCl (Vitamin B1 Tab) 100 mg PO DAILY [facility] Last Admin: 07/17/18 10:01 Dose: 100 mg Trazodone HCl (Desyrel) 50 mg PO HS PRN PRN Reason: Insomnia Last Admin: 07/12/18 23:19 Dose: 50 mg - Labs Labs: 07/16/18 06:36 07/16/18 06:36 PT 13.2 SECONDS (9.7-12.2) H 07/16/18 06:36 INR 1.2 07/16/18 06:36 Attending/Attestation - Attestation I have personally seen and examined this patient.: Yes I have fully participated in the care of the patient.: Yes I have reviewed all pertinent clinical information, including history, physical exam and plan: Yes Notes (Text): 07/17/18 14:16 I have seen and examined patient with GI fellow. No acute events overnight, he is seen resting in bed comfortably. He denies abdominal pain, nausea, vomiting, fever/chills. He is requesting for diet to be advanced. Review of vitals from today shows tachycardia. Decompensated ETOH cirrhosis Transaminitis, acute ETOH hepatitis Dysphagia Abdominal US reviewed by me showing cirrhosis, no ascites or hepatic lesions, normal caliber CBD - NPO - Continue with IVF hydration, supportive care - PPN therapy as per medical team - Patient appears more alert/oriented today as compared to previous day, would recommend repeat swallow evaluation - Continue to monitor LFTs - Pending recommendations, would consider endoscopic evaluation on wednesday, will continue to monitor patient clinical course
[2018-07-17] MEDS ORDERED: PPN #2 IV ONE (10:00)
[2018-07-17] MEDS: Multiple Vitamins Tab PO SCH (10:01)
[2018-07-17] MEDS: PPN #1 IV SCH (10:16)
--- NOTE | 2018-07-17 12:02 | CP.PCM.PN ---
Subjective - Date & Time of Evaluation Date of Evaluation: 07/17/18 Time of Evaluation: 12:01 - Subjective Subjective: ALERT IN NO DISTRESS VS STABLE STILL HAS DYSPHAGIA TO ALL FOOD ON IV FLUID/TPN WILL NEED EGD CONT CURRENT MANAGEMENT Objective - Vital Signs/Intake and Output Vital Signs (last 24 hours): Temp Pulse Resp BP Pulse Ox 97.7 F 91 H 20 117/78 97 07/17/18 07:00 07/17/18 07:00 07/17/18 07:00 07/17/18 07:00 07/17/18 07:00 Intake and Output: 07/17/18 07/17/18 11:59 23:59 Intake Total 504 Output Total 500 Balance 4 - Medications Medications: Current Medications Al Hydrox/Mg Hydrox/Simethicone (Maalox 30 Ml) 30 ml PO TID PRN PRN Reason: Indigestion / Heartburn Clonidine HCl (Catapres) 0.1 mg PO Q4H PRN PRN Reason: Symptoms of alcohol withdrawl Last Admin: 07/13/18 19:15 Dose: 0.1 mg Folic Acid (Folic Acid) 1 mg PO DAILY [facility] Last Admin: 07/17/18 10:01 Dose: 1 mg Gabapentin (Neurontin) 100 mg PO TID [facility] Last Admin: 07/17/18 10:00 Dose: 100 mg Sodium Chloride (Sodium Chloride 0.45%) 1,000 mls @ 120 mls/hr IV .Q8H20M [facility] Last Admin: 07/16/18 00:00 Dose: 120 mls/hr Amino Acids (Clinimix 4.25/5 % "E" (1000 Ml)) 1,000 mls @ 63 mls/hr IV .[id number] ONE Stop: 07/18/18 01:52 Last Admin: 07/17/18 11:23 Dose: Not Given Multivitamins/Vitamin C 10 ml/Chromium/Copper/Manganese/Zinc 1 ml/ Amino Acids 1,011 mls @ 63 mls/hr IV .Q16H3M ONE Stop: 07/18/18 10:02 Amino Acids (Clinimix 4.25/5 % "E" (1000 Ml)) 1,000 mls @ 63 mls/hr IV .[id number] ONE Stop: 07/19/18 01:52 Loperamide HCl (Imodium) 2 mg PO Q8 PRN PRN Reason: Diarrhea Last Admin: 07/17/18 05:35 Dose: 2 mg Lorazepam (Ativan) 1 mg PO Q24H [facility]; Taper Stop: 07/17/18 17:49 Last Admin: 07/16/18 17:41 Dose: Not Given Lorazepam (Ativan) 1 mg PO Q4H PRN PRN Reason: Symptoms of alcohol withdrawl Last Admin: 07/16/18 22:09 Dose: 1 mg Metoclopramide HCl (Reglan) 10 mg IVP Q8H [facility] Last Admin: 07/17/18 05:29 Dose: 10 mg Multivitamins (Hexavitamin) 1 tab PO DAILY [facility] Last Admin: 07/17/18 10:01 Dose: 1 tab Nicotine (Nicoderm Cq) 1 patch TD DAILY [facility] Last Admin: 07/17/18 10:00 Dose: 1 patch Ondansetron HCl (Zofran Tab) 4 mg PO Q8 PRN PRN Reason: Nausea/Vomiting Thiamine HCl (Vitamin B1 Tab) 100 mg PO DAILY [facility] Last Admin: 07/17/18 10:01 Dose: 100 mg Trazodone HCl (Desyrel) 50 mg PO HS PRN PRN Reason: Insomnia Last Admin: 07/12/18 23:19 Dose: 50 mg - Labs Labs: 07/16/18 06:36 07/16/18 06:36 PT 13.2 SECONDS (9.7-12.2) H 07/16/18 06:36 INR 1.2 07/16/18 06:36 Assessment and Plan (1) Dysphagia Status: Acute (2) CAD (coronary artery disease) Status: Acute (3) Cirrhosis of liver Status: Acute (4) Diabetes Status: Acute (5) HTN (hypertension) Status: Acute
[2018-07-17] MEDS ORDERED: PPN #3 IV ONE (18:00)
[2018-07-18] MEDS ORDERED: PPN #4 IV ONE (10:00)
--- NOTE | 2018-07-18 10:34 | CP.PCM.PN ---
Subjective - Date & Time of Evaluation Date of Evaluation: 07/18/18 Time of Evaluation: 10:34 - Subjective Subjective: ALERT IN NO DISTRESS VS STABLE STILL HAS DYSPHAGIA TO ALL FOOD ON IV FLUID/TPN WILL NEED EGD CONT CURRENT MANAGEMENT Objective - Vital Signs/Intake and Output Vital Signs (last 24 hours): Temp Pulse Resp BP Pulse Ox 97.9 F 95 H 20 123/79 94 L 07/18/18 07:00 07/18/18 07:00 07/18/18 07:00 07/18/18 07:00 07/18/18 07:00 - Medications Medications: Current Medications Al Hydrox/Mg Hydrox/Simethicone (Maalox 30 Ml) 30 ml PO TID PRN PRN Reason: Indigestion / Heartburn Clonidine HCl (Catapres) 0.1 mg PO Q4H PRN PRN Reason: Symptoms of alcohol withdrawl Last Admin: 07/13/18 19:15 Dose: 0.1 mg Folic Acid (Folic Acid) 1 mg PO DAILY [facility] Last Admin: 07/17/18 10:01 Dose: 1 mg Gabapentin (Neurontin) 100 mg PO TID [facility] Last Admin: 07/17/18 18:18 Dose: 100 mg Amino Acids (Clinimix 4.25/5 % "E" (1000 Ml)) 1,000 mls @ 63 mls/hr IV .[id number] Stop: 07/19/18 01:52 Loperamide HCl (Imodium) 2 mg PO Q8 PRN PRN Reason: Diarrhea Last Admin: 07/17/18 05:35 Dose: 2 mg Lorazepam (Ativan) 1 mg PO Q4H PRN PRN Reason: Symptoms of alcohol withdrawl Last Admin: 07/18/18 04:00 Dose: 1 mg Metoclopramide HCl (Reglan) 10 mg IVP Q8H [facility] Last Admin: 07/18/18 04:00 Dose: 10 mg Multivitamins (Hexavitamin) 1 tab PO DAILY [facility] Last Admin: 07/17/18 10:01 Dose: 1 tab Nicotine (Nicoderm Cq) 1 patch TD DAILY [facility] Last Admin: 07/17/18 10:00 Dose: 1 patch Ondansetron HCl (Zofran Tab) 4 mg PO Q8 PRN PRN Reason: Nausea/Vomiting Thiamine HCl (Vitamin B1 Tab) 100 mg PO DAILY [facility] Last Admin: 07/17/18 10:01 Dose: 100 mg Trazodone HCl (Desyrel) 50 mg PO HS PRN PRN Reason: Insomnia Last Admin: 07/12/18 23:19 Dose: 50 mg - Labs Labs: 07/16/18 06:36 07/16/18 06:36 PT 13.2 SECONDS (9.7-12.2) H 07/16/18 06:36 INR 1.2 07/16/18 06:36 Assessment and Plan (1) Dysphagia Status: Acute (2) CAD (coronary artery disease) Status: Acute (3) Cirrhosis of liver Status: Acute (4) Diabetes Status: Acute (5) HTN (hypertension) Status: Acute
[2018-07-18] MEDS: Multiple Vitamins Tab PO SCH (11:21)
[2018-07-18 12:16] LABS: ALB/GLOB RATIO 0.7 (1.0-2.1); ALBUMIN 3.7 g/dL (3.5-5.0); ALT/SGPT 81 U/L (21-72); AST/SGOT 162 U/L (17-59); BLOOD UREA NITROGEN 15 mg/dL (9-20); CALCIUM 8.4 mg/dl (8.6-10.4); GFR NON-AFRICAN AMERICAN > 60
[2018-07-18] MEDS ORDERED: PPN #5 IV ONE (18:00)
--- NOTE | 2018-07-19 08:16 | CP.PCM.PN ---
<Sheldon,Juliette - Last Filed: 07/19/18 08:13> Subjective - Date & Time of Evaluation Date of Evaluation: 07/19/18 Time of Evaluation: 07:00 - Subjective Subjective: GI Fellow PGY5 Progress Note Pt seen and evaluated at bedside, pt reports tolerating diet with choking or cough. ROS: A 12pt ROS was negative except as above. Objective - Vital Signs/Intake and Output Vital Signs (last 24 hours): Temp Pulse Resp BP Pulse Ox 98.9 F 93 H 20 131/84 92 L 07/18/18 23:00 07/18/18 23:00 07/18/18 23:00 07/18/18 23:00 07/18/18 23:00 Intake and Output: 07/19/18 07/19/18 06:59 18:59 Intake Total 624 Output Total 600 Balance 24 - Medications Medications: Current Medications Al Hydrox/Mg Hydrox/Simethicone (Maalox 30 Ml) 30 ml PO TID PRN PRN Reason: Indigestion / Heartburn Clonidine HCl (Catapres) 0.1 mg PO Q4H PRN PRN Reason: Symptoms of alcohol withdrawl Last Admin: 07/13/18 19:15 Dose: 0.1 mg Folic Acid (Folic Acid) 1 mg PO DAILY [facility] Last Admin: 07/18/18 11:20 Dose: 1 mg Gabapentin (Neurontin) 100 mg PO TID [facility] Last Admin: 07/18/18 17:58 Dose: 100 mg Multivitamins/Vitamin C 10 ml/Chromium/Copper/Manganese/Zinc 1 ml/ Amino Acids 1,011 mls @ 63 mls/hr IV .[id number] Stop: 07/19/18 10:02 Last Admin: 07/18/18 17:54 Dose: 63 mls/hr Amino Acids (Clinimix 4.25/5 % "E" (1000 Ml)) 1,000 mls @ 63 mls/hr IV .[id number] [facility] Stop: 07/19/18 17:59 Loperamide HCl (Imodium) 2 mg PO Q8 PRN PRN Reason: Diarrhea Last Admin: 07/17/18 05:35 Dose: 2 mg Lorazepam (Ativan) 1 mg PO Q4H PRN PRN Reason: Symptoms of alcohol withdrawl Last Admin: 07/19/18 05:22 Dose: 1 mg Metoclopramide HCl (Reglan) 10 mg IVP Q8H [facility] Last Admin: 07/19/18 05:16 Dose: 10 mg Multivitamins (Hexavitamin) 1 tab PO DAILY [facility] Last Admin: 07/18/18 11:21 Dose: 1 tab Nicotine (Nicoderm Cq) 1 patch TD DAILY [facility] Last Admin: 07/18/18 11:20 Dose: 1 patch Ondansetron HCl (Zofran Tab) 4 mg PO Q8 PRN PRN Reason: Nausea/Vomiting Thiamine HCl (Vitamin B1 Tab) 100 mg PO DAILY [facility] Last Admin: 07/18/18 11:20 Dose: 100 mg Trazodone HCl (Desyrel) 50 mg PO HS PRN PRN Reason: Insomnia Last Admin: 07/12/18 23:19 Dose: 50 mg - Labs Labs: 07/16/18 06:36 07/18/18 11:45 PT 13.2 SECONDS (9.7-12.2) H 07/16/18 06:36 INR 1.2 07/16/18 06:36 - Constitutional Appears: Non-toxic, No Acute Distress - Head Exam Head Exam: ATRAUMATIC, NORMAL INSPECTION, NORMOCEPHALIC - Eye Exam Eye Exam: EOMI, Normal appearance, PERRL - ENT Exam ENT Exam: Mucous Membranes Moist, Normal Exam - Neck Exam Neck Exam: Full ROM, Normal Inspection - Respiratory Exam Respiratory Exam: Clear to Ausculation Bilateral, NORMAL BREATHING PATTERN - Cardiovascular Exam Cardiovascular Exam: REGULAR RHYTHM, +S1, +S2 - GI/Abdominal Exam GI & Abdominal Exam: Soft, Normal Bowel Sounds. absent: Distended, Firm, Guarding, Tenderness - Extremities Exam Extremities Exam: Full ROM, Normal Inspection - Back Exam Back Exam: NORMAL INSPECTION - Neurological Exam Neurological Exam: Alert, Awake, Oriented x3 - Psychiatric Exam Psychiatric exam: Normal Affect, Normal Mood - Skin Skin Exam: Dry, Intact, Normal Color, Warm Assessment and Plan - Assessment and Plan (Free Text) Assessment: 1. Alcoholic Cirrhosis 2. Thrombocytopenia 3. Dysphagia 4. Alcohol abuse 5. Elevated LFTs Plan: -Continue supportive care with IVF hydration -Swallow eval improved, diet advanced to pureed -NO NGT due to Cirrhosis and possible VARICES -Pt will need EGD tomorrow -Will continue to follow pt -U/S: cirrhosis, gb thickening, CBD normal -Etoh cessation advised -Will continue to follow pt <Jozef Chamberlain - Last Filed: 07/19/18 17:23> Objective - Vital Signs/Intake and Output Vital Signs (last 24 hours): Temp Pulse Resp BP Pulse Ox 97.4 F L 99 H 22 101/70 95 07/19/18 16:00 07/19/18 16:00 07/19/18 16:00 07/19/18 16:00 07/19/18 16:00 Intake and Output: 07/19/18 07/19/18 06:59 18:59 Intake Total 624 10 Output Total 600 Balance 24 10 - Medications Medications: Current Medications Al Hydrox/Mg Hydrox/Simethicone (Maalox 30 Ml) 30 ml PO TID PRN PRN Reason: Indigestion / Heartburn Clonidine HCl (Catapres) 0.1 mg PO Q4H PRN PRN Reason: Symptoms of alcohol withdrawl Last Admin: 07/13/18 19:15 Dose: 0.1 mg Folic Acid (Folic Acid) 1 mg PO DAILY [facility] Last Admin: 07/19/18 09:31 Dose: 1 mg Gabapentin (Neurontin) 100 mg PO TID [facility] Last Admin: 07/19/18 13:51 Dose: 100 mg Amino Acids (Clinimix 4.25/5 % "E" (1000 Ml)) 1,000 mls @ 63 mls/hr IV .[id number] [facility] Stop: 07/19/18 17:59 Last Admin: 07/19/18 10:40 Dose: Not Given Loperamide HCl (Imodium) 2 mg PO Q8 PRN PRN Reason: Diarrhea Last Admin: 07/17/18 05:35 Dose: 2 mg Lorazepam (Ativan) 1 mg PO Q4H PRN PRN Reason: Symptoms of alcohol withdrawl Last Admin: 07/19/18 05:22 Dose: 1 mg Metoclopramide HCl (Reglan) 10 mg IVP Q8H [facility] Last Admin: 07/19/18 13:43 Dose: 10 mg Multivitamins (Hexavitamin) 1 tab PO DAILY [facility] Last Admin: 07/19/18 09:31 Dose: 1 tab Nicotine (Nicoderm Cq) 1 patch TD DAILY [facility] Last Admin: 07/19/18 09:31 Dose: 1 patch Ondansetron HCl (Zofran Tab) 4 mg PO Q8 PRN PRN Reason: Nausea/Vomiting Thiamine HCl (Vitamin B1 Tab) 100 mg PO DAILY [facility] Last Admin: 07/19/18 09:31 Dose: 100 mg Trazodone HCl (Desyrel) 50 mg PO HS PRN PRN Reason: Insomnia Last Admin: 07/12/18 23:19 Dose: 50 mg - Labs Labs: 07/16/18 06:36 07/18/18 11:45 PT 13.2 SECONDS (9.7-12.2) H 07/16/18 06:36 INR 1.2 07/16/18 06:36 Attending/Attestation - Attestation I have personally seen and examined this patient.: Yes I have fully participated in the care of the patient.: Yes I have reviewed all pertinent clinical information, including history, physical exam and plan: Yes Notes (Text): 07/19/18 17:21 I have seen and examined patient. No acute events overnight, he is able to tolerate puree consistency diet without difficulty. He denies dysphagia, nausea, vomiting, abdominal pain. ETOH cirrhosis Dysphagia Transaminitis, acute ETOH hepatitis - Puree diet as tolerated - Continue to monitor LFTs - Follow up [employer]ER recommendations - Follow up results of barium swallow - Will plan for EGD evaluation tomorrow, NPO after midnight
[2018-07-19] MEDS: PPN #6 IV SCH ×2 (08:52→10:40)
[2018-07-19] MEDS: Multiple Vitamins Tab PO SCH (09:31)
--- NOTE | 2018-07-19 11:04 | RAD ---
Date of service: 07/19/2018 PROCEDURE: Modified barium swallow study. HISTORY: difficulty swallowing COMPARISON: None available. TECHNIQUE: Under fluoroscopic guidance, barium meals of various consistency were administered to the patient by the speech pathologist. FINDINGS: No gross aspiration was observed during this study. Pooling of contrast is noted within the valleculae and pyriform sinuses. Flash penetration was observed. IMPRESSION: No gross aspiration observed. Flash penetration was observed. Pooling of contrast within the valleculae and piriform sinuses. Please refer to the detailed report and recommendations of the speech pathologist.
--- NOTE | 2018-07-19 11:14 | CP.PCM.PCO ---
Physician Communication Note - Physician Communication Note Physician Communication Note: Pt completed detox. Psych signed out
--- NOTE | 2018-07-19 11:51 | CP.PCM.PN ---
Subjective - Date & Time of Evaluation Date of Evaluation: 07/19/18 Time of Evaluation: 11:50 - Subjective Subjective: PER ST PT WAS STARTED ON PUREE AND THIS AM CHOKED ON MILK NPO , FOR EGD IN AM Objective - Vital Signs/Intake and Output Vital Signs (last 24 hours): Temp Pulse Resp BP Pulse Ox 98.9 F 93 H 20 131/84 92 L 07/18/18 23:00 07/18/18 23:00 07/18/18 23:00 07/18/18 23:00 07/18/18 23:00 Intake and Output: 07/18/18 07/19/18 23:59 11:59 Intake Total 904 624 Output Total 600 Balance 904 24 - Medications Medications: Current Medications Al Hydrox/Mg Hydrox/Simethicone (Maalox 30 Ml) 30 ml PO TID PRN PRN Reason: Indigestion / Heartburn Clonidine HCl (Catapres) 0.1 mg PO Q4H PRN PRN Reason: Symptoms of alcohol withdrawl Last Admin: 07/13/18 19:15 Dose: 0.1 mg Folic Acid (Folic Acid) 1 mg PO DAILY [facility] Last Admin: 07/19/18 09:31 Dose: 1 mg Gabapentin (Neurontin) 100 mg PO TID [facility] Last Admin: 07/19/18 09:31 Dose: 100 mg Amino Acids (Clinimix 4.25/5 % "E" (1000 Ml)) 1,000 mls @ 63 mls/hr IV .[id number] [facility] Stop: 07/19/18 17:59 Last Admin: 07/19/18 10:40 Dose: Not Given Loperamide HCl (Imodium) 2 mg PO Q8 PRN PRN Reason: Diarrhea Last Admin: 07/17/18 05:35 Dose: 2 mg Lorazepam (Ativan) 1 mg PO Q4H PRN PRN Reason: Symptoms of alcohol withdrawl Last Admin: 07/19/18 05:22 Dose: 1 mg Metoclopramide HCl (Reglan) 10 mg IVP Q8H [facility] Last Admin: 07/19/18 05:16 Dose: 10 mg Multivitamins (Hexavitamin) 1 tab PO DAILY [facility] Last Admin: 07/19/18 09:31 Dose: 1 tab Nicotine (Nicoderm Cq) 1 patch TD DAILY [facility] Last Admin: 07/19/18 09:31 Dose: 1 patch Ondansetron HCl (Zofran Tab) 4 mg PO Q8 PRN PRN Reason: Nausea/Vomiting Thiamine HCl (Vitamin B1 Tab) 100 mg PO DAILY [facility] Last Admin: 07/19/18 09:31 Dose: 100 mg Trazodone HCl (Desyrel) 50 mg PO HS PRN PRN Reason: Insomnia Last Admin: 07/12/18 23:19 Dose: 50 mg - Labs Labs: 07/16/18 06:36 07/18/18 11:45 PT 13.2 SECONDS (9.7-12.2) H 07/16/18 06:36 INR 1.2 07/16/18 06:36 Assessment and Plan (1) Dysphagia Status: Acute (2) CAD (coronary artery disease) Status: Acute (3) Cirrhosis of liver Status: Acute (4) Diabetes Status: Acute (5) HTN (hypertension) Status: Acute
[2018-07-19 20:30] LABS: HEMOGLOBIN 13.9 g/dL (12.0-18.0); MEAN CELL VOLUME 102.8 fL (80.0-94.0); MEAN CORPUSCULAR HEMOGLOBIN 34.9 pg (27.0-31.0); MEAN PLATELET VOLUME 9.5 fL (7.2-11.7); RBC 3.98 Mil/uL (4.40-5.90); RED CELL DISTRIBUTION WIDTH 15.7 % (11.5-14.5); WHITE BLOOD COUNT 3.8 K/uL (4.8-10.8)
[2018-07-20 07:46] LABS: INR 1.3
--- NOTE | 2018-07-20 11:25 | CP.PCM.PN ---
Subjective - Date & Time of Evaluation Date of Evaluation: 07/20/18 Time of Evaluation: 11:25 - Subjective Subjective: FOR EGD DYSPHAGIA PERSISTS P/E SAME Objective - Vital Signs/Intake and Output Vital Signs (last 24 hours): Temp Pulse Resp BP Pulse Ox 97.5 F L 106 H 20 112/81 95 07/19/18 23:20 07/19/18 23:20 07/19/18 23:20 07/19/18 23:20 07/19/18 23:20 Intake and Output: 07/19/18 07/20/18 23:59 11:59 Intake Total 10 Output Total 250 Balance -240 - Medications Medications: Current Medications Al Hydrox/Mg Hydrox/Simethicone (Maalox 30 Ml) 30 ml PO TID PRN PRN Reason: Indigestion / Heartburn Clonidine HCl (Catapres) 0.1 mg PO Q4H PRN PRN Reason: Symptoms of alcohol withdrawl Last Admin: 07/13/18 19:15 Dose: 0.1 mg Folic Acid (Folic Acid) 1 mg PO DAILY [facility] Last Admin: 07/19/18 09:31 Dose: 1 mg Gabapentin (Neurontin) 100 mg PO TID [facility] Last Admin: 07/19/18 17:50 Dose: 100 mg Loperamide HCl (Imodium) 2 mg PO Q8 PRN PRN Reason: Diarrhea Last Admin: 07/17/18 05:35 Dose: 2 mg Lorazepam (Ativan) 1 mg PO Q4H PRN PRN Reason: Symptoms of alcohol withdrawl Last Admin: 07/20/18 06:17 Dose: 1 mg Metoclopramide HCl (Reglan) 10 mg IVP Q8H [facility] Last Admin: 07/20/18 05:55 Dose: 10 mg Multivitamins (Hexavitamin) 1 tab PO DAILY [facility] Last Admin: 07/19/18 09:31 Dose: 1 tab Nicotine (Nicoderm Cq) 1 patch TD DAILY [facility] Last Admin: 07/19/18 09:31 Dose: 1 patch Ondansetron HCl (Zofran Tab) 4 mg PO Q8 PRN PRN Reason: Nausea/Vomiting Thiamine HCl (Vitamin B1 Tab) 100 mg PO DAILY [facility] Last Admin: 07/19/18 09:31 Dose: 100 mg Trazodone HCl (Desyrel) 50 mg PO HS PRN PRN Reason: Insomnia Last Admin: 07/12/18 23:19 Dose: 50 mg - Labs Labs: 07/19/18 20:25 07/18/18 11:45 PT 14.0 SECONDS (9.7-12.2) H 07/20/18 07:09 INR 1.3 07/20/18 07:09 Assessment and Plan (1) Dysphagia Status: Acute (2) CAD (coronary artery disease) Status: Acute (3) Cirrhosis of liver Status: Acute (4) Diabetes Status: Acute (5) HTN (hypertension) Status: Acute
[2018-07-20] MEDS ORDERED: Lactated Ringer's 500 ML IV ONE (11:27)
[2018-07-20] MEDS: Multiple Vitamins Tab PO SCH (13:34)
[2018-07-20 18:24] LABS: ALB/GLOB RATIO 0.7 (1.0-2.1); ALBUMIN 3.5 g/dL (3.5-5.0); ALT/SGPT 84 U/L (21-72); AST/SGOT 156 U/L (17-59); BLOOD UREA NITROGEN 13 mg/dL (9-20); CALCIUM 8.7 mg/dl (8.6-10.4); GFR NON-AFRICAN AMERICAN > 60
[2018-07-21 06:41] LABS: BASO % 0.8 % (0.0-2.0); EOS # 0.1 K/uL (0.0-0.7); EOS % 1.3 % (0.0-4.0); HEMOGLOBIN 14.7 g/dL (12.0-18.0); LYMPH # 0.8 K/uL (1.0-4.3); LYMPH % 16.7 % (20.0-40.0); MEAN CELL VOLUME 103.1 fL (80.0-94.0); MEAN CORPUSCULAR HGB CONC 34.9 g/dL (33.0-37.0); MEAN PLATELET VOLUME 9.7 fL (7.2-11.7); MONO # 0.8 K/uL (0.0-0.8); MONO % 18.4 % (0.0-10.0); NEUT # 2.8 K/uL (1.8-7.0); NEUT % 62.8 % (50.0-75.0); NRBC % 0.2 % (0.0-2.0); RBC 4.07 Mil/uL (4.40-5.90); RED CELL DISTRIBUTION WIDTH 14.9 % (11.5-14.5); WHITE BLOOD COUNT 4.5 K/uL (4.8-10.8)
[2018-07-21 06:59] LABS: ALB/GLOB RATIO 0.9 (1.0-2.1); ALBUMIN 3.7 g/dL (3.5-5.0); ALT/SGPT 83 U/L (21-72); AST/SGOT 165 U/L (17-59); BLOOD UREA NITROGEN 11 mg/dL (9-20); CALCIUM 8.4 mg/dl (8.6-10.4); GFR NON-AFRICAN AMERICAN > 60
--- NOTE | 2018-07-21 09:22 | CP.PCM.PN ---
<Amn Sheldona - Last Filed: 07/21/18 09:19> Subjective - Date & Time of Evaluation Date of Evaluation: 07/21/18 Time of Evaluation: 07:00 - Subjective Subjective: GI Fellow PGY5 Progress Note Pt seen and evaluated at bedside, pt feels good with no issues, no chest pain. ROS: A 12pt ROS was negative except as above. Objective - Vital Signs/Intake and Output Vital Signs (last 24 hours): Temp Pulse Resp BP Pulse Ox 98.6 F 88 20 115/80 96 07/21/18 07:15 07/21/18 07:15 07/21/18 07:15 07/21/18 07:15 07/21/18 07:15 - Medications Medications: Current Medications Al Hydrox/Mg Hydrox/Simethicone (Maalox 30 Ml) 30 ml PO TID PRN PRN Reason: Indigestion / Heartburn Clonidine HCl (Catapres) 0.1 mg PO Q4H PRN PRN Reason: Symptoms of alcohol withdrawl Last Admin: 07/13/18 19:15 Dose: 0.1 mg Folic Acid (Folic Acid) 1 mg PO DAILY [facility] Last Admin: 07/20/18 13:35 Dose: 1 mg Gabapentin (Neurontin) 100 mg PO TID [facility] Last Admin: 07/20/18 17:47 Dose: 100 mg Ceftriaxone Sodium 1 gm/ (Sodium Chloride) 100 mls @ 100 mls/hr IVPB DAILY [facility]; Protocol Stop: 07/25/18 13:01 Last Admin: 07/20/18 13:35 Dose: 100 mls/hr Loperamide HCl (Imodium) 2 mg PO Q8 PRN PRN Reason: Diarrhea Last Admin: 07/17/18 05:35 Dose: 2 mg Lorazepam (Ativan) 1 mg PO Q4H PRN PRN Reason: Symptoms of alcohol withdrawl Last Admin: 07/21/18 05:17 Dose: 1 mg Metoclopramide HCl (Reglan) 10 mg IVP Q8H [facility] Last Admin: 07/21/18 05:11 Dose: 10 mg Multivitamins (Hexavitamin) 1 tab PO DAILY [facility] Last Admin: 07/20/18 13:34 Dose: 1 tab Nicotine (Nicoderm Cq) 1 patch TD DAILY [facility] Last Admin: 07/20/18 13:34 Dose: 1 patch Ondansetron HCl (Zofran Tab) 4 mg PO Q8 PRN PRN Reason: Nausea/Vomiting Propranolol HCl (Inderal) 10 mg PO BID [facility] Thiamine HCl (Vitamin B1 Tab) 100 mg PO DAILY [facility] Last Admin: 07/20/18 13:35 Dose: 100 mg Trazodone HCl (Desyrel) 50 mg PO HS PRN PRN Reason: Insomnia Last Admin: 07/12/18 23:19 Dose: 50 mg - Labs Labs: 07/21/18 06:30 07/21/18 06:30 PT 14.0 SECONDS (9.7-12.2) H 07/20/18 07:09 INR 1.3 07/20/18 07:09 - Constitutional Appears: Non-toxic, No Acute Distress - Head Exam Head Exam: ATRAUMATIC, NORMAL INSPECTION, NORMOCEPHALIC - Eye Exam Eye Exam: EOMI, Normal appearance, PERRL - ENT Exam ENT Exam: Mucous Membranes Moist - Neck Exam Neck Exam: Full ROM, Normal Inspection - Respiratory Exam Respiratory Exam: Clear to Ausculation Bilateral, NORMAL BREATHING PATTERN - Cardiovascular Exam Cardiovascular Exam: REGULAR RHYTHM, RRR, +S1, +S2 - GI/Abdominal Exam GI & Abdominal Exam: Soft, Normal Bowel Sounds - Extremities Exam Extremities Exam: Full ROM, Normal Inspection - Neurological Exam Neurological Exam: Alert, Awake, Oriented x3 - Psychiatric Exam Psychiatric exam: Normal Affect, Normal Mood - Skin Skin Exam: Dry, Intact, Normal Color, Warm Assessment and Plan - Assessment and Plan (Free Text) Assessment: 1. Alcoholic Cirrhosis 2. Thrombocytopenia 3. Dysphagia 4. Alcohol abuse 5. Elevated LFTs 6. Esophageal varices Plan: -Continue supportive care -Swallow eval improved, diet advanced to pureed today due to varices banding, can do regular diet as per speech/swallow recs -s/p EGD with varices s/p 3 bands -Will start pt on BB propanolol 10mg bid goal HR <65 for portal HTN -Pt will need to repeat EGD in 2 months for varices surveillance -U/S: cirrhosis, gb thickening, CBD normal -Etoh cessation advised -Will continue to follow pt <Jozef Chamberlain - Last Filed: 07/21/18 17:35> Objective - Vital Signs/Intake and Output Vital Signs (last 24 hours): Temp Pulse Resp BP Pulse Ox 97.8 F 82 20 101/69 94 L 07/21/18 16:03 07/21/18 16:03 07/21/18 16:03 07/21/18 16:03 07/21/18 16:03 Intake and Output: 07/21/18 07/21/18 06:59 18:59 Output Total 450 Balance -450 - Medications Medications: Current Medications Al Hydrox/Mg Hydrox/Simethicone (Maalox 30 Ml) 30 ml PO TID PRN PRN Reason: Indigestion / Heartburn Clonidine HCl (Catapres) 0.1 mg PO Q4H PRN PRN Reason: Symptoms of alcohol withdrawl Last Admin: 07/13/18 19:15 Dose: 0.1 mg Folic Acid (Folic Acid) 1 mg PO DAILY [facility] Last Admin: 07/21/18 11:21 Dose: 1 mg Gabapentin (Neurontin) 100 mg PO TID [facility] Last Admin: 07/21/18 17:30 Dose: 100 mg Ceftriaxone Sodium 1 gm/ (Sodium Chloride) 100 mls @ 100 mls/hr IVPB DAILY [facility]; Protocol Stop: 07/25/18 13:01 Last Admin: 07/21/18 11:30 Dose: 100 mls/hr Loperamide HCl (Imodium) 2 mg PO Q8 PRN PRN Reason: Diarrhea Last Admin: 07/17/18 05:35 Dose: 2 mg Lorazepam (Ativan) 1 mg PO Q4H PRN PRN Reason: Symptoms of alcohol withdrawl Last Admin: 07/21/18 05:17 Dose: 1 mg Metoclopramide HCl (Reglan) 10 mg IVP Q8H [facility] Last Admin: 07/21/18 14:42 Dose: 10 mg Multivitamins (Hexavitamin) 1 tab PO DAILY [facility] Last Admin: 07/21/18 11:20 Dose: 1 tab Nicotine (Nicoderm Cq) 1 patch TD DAILY [facility] Last Admin: 07/21/18 11:21 Dose: 1 patch Ondansetron HCl (Zofran Tab) 4 mg PO Q8 PRN PRN Reason: Nausea/Vomiting Propranolol HCl (Inderal) 10 mg PO BID [facility] Last Admin: 07/21/18 17:30 Dose: 10 mg Thiamine HCl (Vitamin B1 Tab) 100 mg PO DAILY [facility] Last Admin: 07/21/18 11:20 Dose: 100 mg Trazodone HCl (Desyrel) 50 mg PO HS PRN PRN Reason: Insomnia Last Admin: 07/12/18 23:19 Dose: 50 mg - Labs Labs: 07/21/18 06:30 07/21/18 06:30 PT 14.0 SECONDS (9.7-12.2) H 07/20/18 07:09 INR 1.3 07/20/18 07:09 Attending/Attestation - Attestation I have personally seen and examined this patient.: Yes I have fully participated in the care of the patient.: Yes I have reviewed all pertinent clinical information, including history, physical exam and plan: Yes Notes (Text): 07/21/18 17:32 I have seen and examined patient with GI fellow. No acute events overnight, he is seen resting in bed comfortably. He denies abdominal pain, nausea, vomiting, fever/chills. Tolerating puree consistency diet without difficulty. Review of vitals from today are normal. ETOH cirrhosis Dysphagia s/p EGD showing gastritis (HP negative) and esophageal varices s/p band ligation CAD/CABG Transaminitis, acute ETOH hepatitis - Puree consistency diet as tolerated - ETOH cessation therapy - Continue to monitor LFTs - Will begin prophylaxis with non selective b-carroll for esophageal varices - Patient would benefit from repeat EGD within 2 months for variceal surveillance - No further planned GI intervention, will sign off case. Please reconsult as necessary, thank you.
[2018-07-21] MEDS: Multiple Vitamins Tab PO SCH (11:20)
--- NOTE | 2018-07-21 11:26 | CP.PCM.PN ---
Subjective - Date & Time of Evaluation Date of Evaluation: 07/21/18 Time of Evaluation: 11:26 - Subjective Subjective: CURRENTLY TOLERATING DIET S/P EGD VARICES , BANDING DONE D/W PT Objective - Vital Signs/Intake and Output Vital Signs (last 24 hours): Temp Pulse Resp BP Pulse Ox 98.6 F 88 20 115/80 96 07/21/18 07:15 07/21/18 07:15 07/21/18 07:15 07/21/18 07:15 07/21/18 07:15 - Medications Medications: Current Medications Al Hydrox/Mg Hydrox/Simethicone (Maalox 30 Ml) 30 ml PO TID PRN PRN Reason: Indigestion / Heartburn Clonidine HCl (Catapres) 0.1 mg PO Q4H PRN PRN Reason: Symptoms of alcohol withdrawl Last Admin: 07/13/18 19:15 Dose: 0.1 mg Folic Acid (Folic Acid) 1 mg PO DAILY [facility] Last Admin: 07/21/18 11:21 Dose: 1 mg Gabapentin (Neurontin) 100 mg PO TID [facility] Last Admin: 07/21/18 11:20 Dose: 100 mg Ceftriaxone Sodium 1 gm/ (Sodium Chloride) 100 mls @ 100 mls/hr IVPB DAILY [facility]; Protocol Stop: 07/25/18 13:01 Last Admin: 07/20/18 13:35 Dose: 100 mls/hr Loperamide HCl (Imodium) 2 mg PO Q8 PRN PRN Reason: Diarrhea Last Admin: 07/17/18 05:35 Dose: 2 mg Lorazepam (Ativan) 1 mg PO Q4H PRN PRN Reason: Symptoms of alcohol withdrawl Last Admin: 07/21/18 05:17 Dose: 1 mg Metoclopramide HCl (Reglan) 10 mg IVP Q8H [facility] Last Admin: 07/21/18 05:11 Dose: 10 mg Multivitamins (Hexavitamin) 1 tab PO DAILY [facility] Last Admin: 07/21/18 11:20 Dose: 1 tab Nicotine (Nicoderm Cq) 1 patch TD DAILY [facility] Last Admin: 07/21/18 11:21 Dose: 1 patch Ondansetron HCl (Zofran Tab) 4 mg PO Q8 PRN PRN Reason: Nausea/Vomiting Propranolol HCl (Inderal) 10 mg PO BID [facility] Last Admin: 07/21/18 11:20 Dose: 10 mg Thiamine HCl (Vitamin B1 Tab) 100 mg PO DAILY [facility] Last Admin: 07/21/18 11:20 Dose: 100 mg Trazodone HCl (Desyrel) 50 mg PO HS PRN PRN Reason: Insomnia Last Admin: 07/12/18 23:19 Dose: 50 mg - Labs Labs: 07/21/18 06:30 07/21/18 06:30 PT 14.0 SECONDS (9.7-12.2) H 07/20/18 07:09 INR 1.3 07/20/18 07:09 Assessment and Plan (1) Dysphagia Status: Acute (2) CAD (coronary artery disease) Status: Acute (3) Cirrhosis of liver Status: Acute (4) Diabetes Status: Acute (5) HTN (hypertension) Status: Acute
[2018-07-22] MEDS: Multiple Vitamins Tab PO SCH (10:05)
--- NOTE | 2018-07-22 11:01 | CP.PCM.PN ---
Subjective - Date & Time of Evaluation Date of Evaluation: 07/22/18 Time of Evaluation: 11:00 - Subjective Subjective: UNSREADY GAIT TREMORS SWALLOWING BETTER REF TO REHAB Objective - Vital Signs/Intake and Output Vital Signs (last 24 hours): Temp Pulse Resp BP Pulse Ox 97.7 F 68 20 97/62 L 99 07/22/18 07:00 07/22/18 07:00 07/22/18 07:00 07/22/18 07:00 07/22/18 07:00 Intake and Output: 07/21/18 07/22/18 23:59 11:59 Intake Total 200 Output Total 450 Balance -250 - Medications Medications: Current Medications Al Hydrox/Mg Hydrox/Simethicone (Maalox 30 Ml) 30 ml PO TID PRN PRN Reason: Indigestion / Heartburn Clonidine HCl (Catapres) 0.1 mg PO Q4H PRN PRN Reason: Symptoms of alcohol withdrawl Last Admin: 07/13/18 19:15 Dose: 0.1 mg Folic Acid (Folic Acid) 1 mg PO DAILY [facility] Last Admin: 07/22/18 10:05 Dose: 1 mg Gabapentin (Neurontin) 100 mg PO TID [facility] Last Admin: 07/22/18 10:05 Dose: 100 mg Ceftriaxone Sodium 1 gm/ (Sodium Chloride) 100 mls @ 100 mls/hr IVPB DAILY [facility]; Protocol Stop: 07/25/18 13:01 Last Admin: 07/22/18 10:07 Dose: 100 mls/hr Loperamide HCl (Imodium) 2 mg PO Q8 PRN PRN Reason: Diarrhea Last Admin: 07/17/18 05:35 Dose: 2 mg Lorazepam (Ativan) 1 mg PO Q4H PRN PRN Reason: Symptoms of alcohol withdrawl Last Admin: 07/21/18 17:41 Dose: 1 mg Metoclopramide HCl (Reglan) 10 mg IVP Q8H [facility] Last Admin: 07/22/18 05:08 Dose: 10 mg Multivitamins (Hexavitamin) 1 tab PO DAILY [facility] Last Admin: 07/22/18 10:05 Dose: 1 tab Nicotine (Nicoderm Cq) 1 patch TD DAILY [facility] Last Admin: 07/22/18 10:05 Dose: 1 patch Ondansetron HCl (Zofran Tab) 4 mg PO Q8 PRN PRN Reason: Nausea/Vomiting Propranolol HCl (Inderal) 10 mg PO BID [facility] Last Admin: 07/22/18 10:06 Dose: 10 mg Thiamine HCl (Vitamin B1 Tab) 100 mg PO DAILY [facility] Last Admin: 07/22/18 10:06 Dose: 100 mg Trazodone HCl (Desyrel) 50 mg PO HS PRN PRN Reason: Insomnia Last Admin: 07/21/18 21:38 Dose: 50 mg - Labs Labs: 07/21/18 06:30 07/21/18 06:30 PT 14.0 SECONDS (9.7-12.2) H 07/20/18 07:09 INR 1.3 07/20/18 07:09 Assessment and Plan (1) Dysphagia Status: Acute (2) CAD (coronary artery disease) Status: Acute (3) Cirrhosis of liver Status: Acute (4) Diabetes Status: Acute (5) HTN (hypertension) Status: Acute
[2018-07-23] MEDS: Multiple Vitamins Tab PO SCH (09:32)
--- NOTE | 2018-07-23 12:28 | CP.PCM.PN ---
Subjective - Date & Time of Evaluation Date of Evaluation: 07/23/18 Time of Evaluation: 12:28 - Subjective Subjective: UNSREADY GAIT TREMORS SWALLOWING BETTER REF TO REHAB Objective - Vital Signs/Intake and Output Vital Signs (last 24 hours): Temp Pulse Resp BP Pulse Ox 97.8 F 81 18 91/60 L 96 07/23/18 07:00 07/23/18 07:00 07/23/18 07:00 07/23/18 07:00 07/23/18 07:00 Intake and Output: 07/23/18 07/23/18 11:59 23:59 Intake Total 240 Balance 240 - Medications Medications: Current Medications Al Hydrox/Mg Hydrox/Simethicone (Maalox 30 Ml) 30 ml PO TID PRN PRN Reason: Indigestion / Heartburn Clonidine HCl (Catapres) 0.1 mg PO Q4H PRN PRN Reason: Symptoms of alcohol withdrawl Last Admin: 07/13/18 19:15 Dose: 0.1 mg Folic Acid (Folic Acid) 1 mg PO DAILY [facility] Last Admin: 07/23/18 09:32 Dose: 1 mg Gabapentin (Neurontin) 100 mg PO TID [facility] Last Admin: 07/23/18 09:32 Dose: 100 mg Ceftriaxone Sodium 1 gm/ (Sodium Chloride) 100 mls @ 100 mls/hr IVPB DAILY [facility]; Protocol Stop: 07/25/18 13:01 Last Admin: 07/23/18 09:33 Dose: 100 mls/hr Loperamide HCl (Imodium) 2 mg PO Q8 PRN PRN Reason: Diarrhea Last Admin: 07/17/18 05:35 Dose: 2 mg Lorazepam (Ativan) 1 mg PO Q4H PRN PRN Reason: Symptoms of alcohol withdrawl Last Admin: 07/21/18 17:41 Dose: 1 mg Metoclopramide HCl (Reglan) 10 mg IVP Q8H [facility] Last Admin: 07/23/18 04:56 Dose: 10 mg Multivitamins (Hexavitamin) 1 tab PO DAILY [facility] Last Admin: 07/23/18 09:32 Dose: 1 tab Nicotine (Nicoderm Cq) 1 patch TD DAILY [facility] Last Admin: 07/23/18 09:32 Dose: 1 patch Ondansetron HCl (Zofran Tab) 4 mg PO Q8 PRN PRN Reason: Nausea/Vomiting Propranolol HCl (Inderal) 10 mg PO BID [facility] Last Admin: 07/23/18 09:33 Dose: Not Given Thiamine HCl (Vitamin B1 Tab) 100 mg PO DAILY [facility] Last Admin: 07/23/18 09:32 Dose: 100 mg Trazodone HCl (Desyrel) 50 mg PO HS PRN PRN Reason: Insomnia Last Admin: 07/22/18 22:27 Dose: 50 mg - Labs Labs: 07/21/18 06:30 07/21/18 06:30 PT 14.0 SECONDS (9.7-12.2) H 07/20/18 07:09 INR 1.3 07/20/18 07:09 Assessment and Plan (1) Dysphagia Status: Acute (2) CAD (coronary artery disease) Status: Acute (3) Cirrhosis of liver Status: Acute (4) Diabetes Status: Acute (5) HTN (hypertension) Status: Acute
[2018-07-24] MEDS: Multiple Vitamins Tab PO SCH (09:46)
--- NOTE | 2018-07-24 12:04 | CP.PCM.PN ---
Subjective - Date & Time of Evaluation Date of Evaluation: 07/24/18 Time of Evaluation: 12:04 - Subjective Subjective: UNSREADY GAIT TREMORS SWALLOWING BETTER REF TO REHAB Objective - Vital Signs/Intake and Output Vital Signs (last 24 hours): Temp Pulse Resp BP Pulse Ox 98.4 F 81 20 101/73 96 07/24/18 07:30 07/24/18 07:30 07/24/18 07:30 07/24/18 07:30 07/24/18 07:30 - Medications Medications: Current Medications Al Hydrox/Mg Hydrox/Simethicone (Maalox 30 Ml) 30 ml PO TID PRN PRN Reason: Indigestion / Heartburn Clonidine HCl (Catapres) 0.1 mg PO Q4H PRN PRN Reason: Symptoms of alcohol withdrawl Last Admin: 07/13/18 19:15 Dose: 0.1 mg Folic Acid (Folic Acid) 1 mg PO DAILY [facility] Last Admin: 07/24/18 09:46 Dose: 1 mg Gabapentin (Neurontin) 100 mg PO TID [facility] Last Admin: 07/24/18 09:46 Dose: 100 mg Loperamide HCl (Imodium) 2 mg PO Q8 PRN PRN Reason: Diarrhea Last Admin: 07/17/18 05:35 Dose: 2 mg Lorazepam (Ativan) 1 mg PO Q4H PRN PRN Reason: Symptoms of alcohol withdrawl Last Admin: 07/21/18 17:41 Dose: 1 mg Metoclopramide HCl (Reglan) 10 mg IVP Q8H [facility] Last Admin: 07/24/18 03:52 Dose: 10 mg Multivitamins (Hexavitamin) 1 tab PO DAILY [facility] Last Admin: 07/24/18 09:46 Dose: 1 tab Nicotine (Nicoderm Cq) 1 patch TD DAILY [facility] Last Admin: 07/24/18 09:46 Dose: 1 patch Ondansetron HCl (Zofran Tab) 4 mg PO Q8 PRN PRN Reason: Nausea/Vomiting Propranolol HCl (Inderal) 10 mg PO BID [facility] Last Admin: 07/24/18 09:46 Dose: Not Given Thiamine HCl (Vitamin B1 Tab) 100 mg PO DAILY [facility] Last Admin: 07/24/18 09:46 Dose: 100 mg Trazodone HCl (Desyrel) 50 mg PO HS PRN PRN Reason: Insomnia Last Admin: 07/23/18 21:31 Dose: 50 mg - Labs Labs: 07/21/18 06:30 07/21/18 06:30 PT 14.0 SECONDS (9.7-12.2) H 07/20/18 07:09 INR 1.3 07/20/18 07:09 Assessment and Plan (1) Dysphagia Status: Acute (2) CAD (coronary artery disease) Status: Acute (3) Cirrhosis of liver Status: Acute (4) Diabetes Status: Acute (5) HTN (hypertension) Status: Acute
[2018-07-25] MEDS: Multiple Vitamins Tab PO SCH (09:36)
--- NOTE | 2018-07-25 11:53 | CP.PCM.PN ---
Subjective - Date & Time of Evaluation Date of Evaluation: 07/25/18 Time of Evaluation: 11:53 - Subjective Subjective: UNSREADY GAIT TREMORS SWALLOWING BETTER REF TO REHAB Objective - Vital Signs/Intake and Output Vital Signs (last 24 hours): Temp Pulse Resp BP Pulse Ox 98.1 F 67 18 105/65 96 07/25/18 07:05 07/25/18 07:05 07/25/18 07:05 07/25/18 07:05 07/25/18 07:05 - Medications Medications: Current Medications Al Hydrox/Mg Hydrox/Simethicone (Maalox 30 Ml) 30 ml PO TID PRN PRN Reason: Indigestion / Heartburn Clonidine HCl (Catapres) 0.1 mg PO Q4H PRN PRN Reason: Symptoms of alcohol withdrawl Last Admin: 07/13/18 19:15 Dose: 0.1 mg Folic Acid (Folic Acid) 1 mg PO DAILY [facility] Last Admin: 07/25/18 09:36 Dose: 1 mg Gabapentin (Neurontin) 100 mg PO TID [facility] Last Admin: 07/25/18 09:35 Dose: 100 mg Loperamide HCl (Imodium) 2 mg PO Q8 PRN PRN Reason: Diarrhea Last Admin: 07/17/18 05:35 Dose: 2 mg Lorazepam (Ativan) 1 mg PO Q4H PRN PRN Reason: Symptoms of alcohol withdrawl Last Admin: 07/21/18 17:41 Dose: 1 mg Metoclopramide HCl (Reglan) 10 mg IVP Q8H [facility] Last Admin: 07/25/18 05:00 Dose: 10 mg Multivitamins (Hexavitamin) 1 tab PO DAILY [facility] Last Admin: 07/25/18 09:36 Dose: 1 tab Nicotine (Nicoderm Cq) 1 patch TD DAILY [facility] Last Admin: 07/25/18 09:36 Dose: 1 patch Ondansetron HCl (Zofran Tab) 4 mg PO Q8 PRN PRN Reason: Nausea/Vomiting Propranolol HCl (Inderal) 10 mg PO BID [facility] Last Admin: 07/25/18 09:36 Dose: 10 mg Thiamine HCl (Vitamin B1 Tab) 100 mg PO DAILY [facility] Last Admin: 07/25/18 09:35 Dose: 100 mg Trazodone HCl (Desyrel) 50 mg PO HS PRN PRN Reason: Insomnia Last Admin: 07/24/18 21:46 Dose: 50 mg - Labs Labs: 07/21/18 06:30 07/21/18 06:30 PT 14.0 SECONDS (9.7-12.2) H 07/20/18 07:09 INR 1.3 07/20/18 07:09 Assessment and Plan (1) Dysphagia Status: Acute (2) CAD (coronary artery disease) Status: Acute (3) Cirrhosis of liver Status: Acute (4) Diabetes Status: Acute (5) HTN (hypertension) Status: Acute
[2018-07-26] MEDS: Multiple Vitamins Tab PO SCH (09:36)
--- NOTE | 2018-07-26 11:24 | CP.PCM.PN ---
Subjective - Date & Time of Evaluation Date of Evaluation: 07/26/18 Time of Evaluation: 11:24 - Subjective Subjective: NO MAJOR COMPLAINTS P/E TREMORS AND UNSTEADY GAIT NO DYSPHAGIA FOR REHAB Objective - Vital Signs/Intake and Output Vital Signs (last 24 hours): Temp Pulse Resp BP Pulse Ox 98.0 F 69 18 109/72 98 07/26/18 07:50 07/26/18 07:50 07/26/18 07:50 07/26/18 07:50 07/26/18 07:50 - Medications Medications: Current Medications Al Hydrox/Mg Hydrox/Simethicone (Maalox 30 Ml) 30 ml PO TID PRN PRN Reason: Indigestion / Heartburn Clonidine HCl (Catapres) 0.1 mg PO Q4H PRN PRN Reason: Symptoms of alcohol withdrawl Last Admin: 07/13/18 19:15 Dose: 0.1 mg Folic Acid (Folic Acid) 1 mg PO DAILY [facility] Last Admin: 07/26/18 09:36 Dose: 1 mg Gabapentin (Neurontin) 100 mg PO TID [facility] Last Admin: 07/26/18 09:36 Dose: 100 mg Loperamide HCl (Imodium) 2 mg PO Q8 PRN PRN Reason: Diarrhea Last Admin: 07/17/18 05:35 Dose: 2 mg Lorazepam (Ativan) 1 mg PO Q4H PRN PRN Reason: Symptoms of alcohol withdrawl Last Admin: 07/21/18 17:41 Dose: 1 mg Metoclopramide HCl (Reglan) 10 mg IVP Q8H [facility] Last Admin: 07/26/18 05:00 Dose: 10 mg Multivitamins (Hexavitamin) 1 tab PO DAILY [facility] Last Admin: 07/26/18 09:36 Dose: 1 tab Nicotine (Nicoderm Cq) 1 patch TD DAILY [facility] Last Admin: 07/26/18 09:35 Dose: 1 patch Ondansetron HCl (Zofran Tab) 4 mg PO Q8 PRN PRN Reason: Nausea/Vomiting Propranolol HCl (Inderal) 10 mg PO BID [facility] Last Admin: 07/26/18 09:35 Dose: 10 mg Thiamine HCl (Vitamin B1 Tab) 100 mg PO DAILY [facility] Last Admin: 07/26/18 09:36 Dose: 100 mg Trazodone HCl (Desyrel) 50 mg PO HS PRN PRN Reason: Insomnia Last Admin: 07/25/18 21:37 Dose: 50 mg - Labs Labs: 07/21/18 06:30 07/21/18 06:30 PT 14.0 SECONDS (9.7-12.2) H 07/20/18 07:09 INR 1.3 07/20/18 07:09 Assessment and Plan (1) Dysphagia Status: Acute (2) CAD (coronary artery disease) Status: Acute (3) Cirrhosis of liver Status: Acute (4) Diabetes Status: Acute (5) HTN (hypertension) Status: Acute
[2018-07-26 14:02] LABS: BASO # 0.1 K/uL (0.0-0.2); BASO % 1.3 % (0.0-2.0); EOS # 0.1 K/uL (0.0-0.7); EOS % 1.7 % (0.0-4.0); HEMOGLOBIN 13.1 g/dL (12.0-18.0); LYMPH # 0.8 K/uL (1.0-4.3); LYMPH % 16.9 % (20.0-40.0); MEAN CELL VOLUME 102.4 fL (80.0-94.0); MEAN CORPUSCULAR HEMOGLOBIN 35.6 pg (27.0-31.0); MEAN CORPUSCULAR HGB CONC 34.8 g/dL (33.0-37.0); MEAN PLATELET VOLUME 10.4 fL (7.2-11.7); MONO # 0.6 K/uL (0.0-0.8); MONO % 14.1 % (0.0-10.0); NEUT # 2.9 K/uL (1.8-7.0); RBC 3.67 Mil/uL (4.40-5.90); RED CELL DISTRIBUTION WIDTH 13.6 % (11.5-14.5); WHITE BLOOD COUNT 4.5 K/uL (4.8-10.8)
[2018-07-26 14:15] LABS: ALB/GLOB RATIO 0.9 (1.0-2.1); ALBUMIN 3.4 g/dL (3.5-5.0); ALT/SGPT 77 U/L (21-72); AST/SGOT 141 U/L (17-59); BLOOD UREA NITROGEN 11 mg/dL (9-20); CALCIUM 8.1 mg/dl (8.6-10.4); GFR NON-AFRICAN AMERICAN > 60
[2018-07-27] MEDS: Multiple Vitamins Tab PO SCH (10:43)
--- NOTE | 2018-07-27 11:35 | CP.PCM.PN ---
Subjective - Date & Time of Evaluation Date of Evaluation: 07/27/18 Time of Evaluation: 11:34 - Subjective Subjective: NO MAJOR COMPLAINTS P/E TREMORS AND UNSTEADY GAIT NO DYSPHAGIA FOR REHAB Objective - Vital Signs/Intake and Output Vital Signs (last 24 hours): Temp Pulse Resp BP Pulse Ox 98.0 F 67 20 92/59 L 95 07/27/18 07:20 07/27/18 07:20 07/27/18 07:20 07/27/18 07:20 07/27/18 07:20 - Medications Medications: Current Medications Al Hydrox/Mg Hydrox/Simethicone (Maalox 30 Ml) 30 ml PO TID PRN PRN Reason: Indigestion / Heartburn Clonidine HCl (Catapres) 0.1 mg PO Q4H PRN PRN Reason: Symptoms of alcohol withdrawl Folic Acid (Folic Acid) 1 mg PO DAILY [facility] Last Admin: 07/27/18 10:43 Dose: 1 mg Gabapentin (Neurontin) 100 mg PO TID [facility] Last Admin: 07/27/18 10:44 Dose: 100 mg Loperamide HCl (Imodium) 2 mg PO Q8 PRN PRN Reason: Diarrhea Last Admin: 07/17/18 05:35 Dose: 2 mg Lorazepam (Ativan) 1 mg PO Q4H PRN PRN Reason: Symptoms of alcohol withdrawl Last Admin: 07/26/18 23:45 Dose: 1 mg Lorazepam (Ativan) 1 mg IVP Q4H PRN PRN Reason: Symptoms of alcohol withdrawl Metoclopramide HCl (Reglan) 10 mg IVP Q8H [facility] Last Admin: 07/26/18 21:56 Dose: Not Given Multivitamins (Hexavitamin) 1 tab PO DAILY [facility] Last Admin: 07/27/18 10:43 Dose: 1 tab Nicotine (Nicoderm Cq) 1 patch TD DAILY [facility] Last Admin: 07/27/18 10:44 Dose: 1 patch Ondansetron HCl (Zofran Tab) 4 mg PO Q8 PRN PRN Reason: Nausea/Vomiting Propranolol HCl (Inderal) 10 mg PO BID [facility] Last Admin: 07/27/18 10:43 Dose: 10 mg Thiamine HCl (Vitamin B1 Tab) 100 mg PO DAILY [facility] Last Admin: 07/27/18 10:44 Dose: 100 mg Trazodone HCl (Desyrel) 50 mg PO HS PRN PRN Reason: Insomnia Last Admin: 07/26/18 22:03 Dose: 50 mg - Labs Labs: 07/26/18 13:52 07/26/18 13:52 PT 14.0 SECONDS (9.7-12.2) H 07/20/18 07:09 INR 1.3 07/20/18 07:09 Assessment and Plan (1) Dysphagia Status: Acute (2) CAD (coronary artery disease) Status: Acute (3) Cirrhosis of liver Status: Acute (4) Diabetes Status: Acute (5) HTN (hypertension) Status: Acute
[2018-07-28] MEDS: Multiple Vitamins Tab PO SCH (09:53)
--- NOTE | 2018-07-28 12:01 | CP.PCM.PN ---
Subjective - Date & Time of Evaluation Date of Evaluation: 07/28/18 Time of Evaluation: 12:01 - Subjective Subjective: NO MAJOR COMPLAINTS P/E TREMORS AND UNSTEADY GAIT NO DYSPHAGIA FOR REHAB Objective - Vital Signs/Intake and Output Vital Signs (last 24 hours): Temp Pulse Resp BP Pulse Ox 98.6 F 71 20 107/68 96 07/28/18 07:00 07/28/18 07:00 07/28/18 07:00 07/28/18 07:00 07/28/18 07:00 - Medications Medications: Current Medications Al Hydrox/Mg Hydrox/Simethicone (Maalox 30 Ml) 30 ml PO TID PRN PRN Reason: Indigestion / Heartburn Clonidine HCl (Catapres) 0.1 mg PO Q4H PRN PRN Reason: Symptoms of alcohol withdrawl Folic Acid (Folic Acid) 1 mg PO DAILY [facility] Last Admin: 07/28/18 09:53 Dose: 1 mg Gabapentin (Neurontin) 100 mg PO TID [facility] Last Admin: 07/28/18 09:52 Dose: 100 mg Loperamide HCl (Imodium) 2 mg PO Q8 PRN PRN Reason: Diarrhea Last Admin: 07/17/18 05:35 Dose: 2 mg Lorazepam (Ativan) 1 mg IVP Q4H PRN PRN Reason: Symptoms of alcohol withdrawl Metoclopramide HCl (Reglan) 10 mg IVP Q8H [facility] Last Admin: 07/28/18 05:29 Dose: Not Given Multivitamins (Hexavitamin) 1 tab PO DAILY [facility] Last Admin: 07/28/18 09:53 Dose: 1 tab Nicotine (Nicoderm Cq) 1 patch TD DAILY [facility] Last Admin: 07/28/18 09:53 Dose: 1 patch Ondansetron HCl (Zofran Tab) 4 mg PO Q8 PRN PRN Reason: Nausea/Vomiting Propranolol HCl (Inderal) 10 mg PO BID [facility] Last Admin: 07/28/18 09:52 Dose: 10 mg Thiamine HCl (Vitamin B1 Tab) 100 mg PO DAILY [facility] Last Admin: 07/28/18 09:53 Dose: 100 mg Trazodone HCl (Desyrel) 50 mg PO HS PRN PRN Reason: Insomnia Last Admin: 07/27/18 23:10 Dose: 50 mg - Labs Labs: 07/26/18 13:52 05/28/19 13:52 PT 14.0 SECONDS (9.7-12.2) H 07/20/18 07:09 INR 1.3 07/20/18 07:09 Assessment and Plan (1) Dysphagia Status: Acute (2) CAD (coronary artery disease) Status: Acute (3) Cirrhosis of liver Status: Acute (4) Diabetes Status: Acute (5) HTN (hypertension) Status: Acute
[2018-07-29] MEDS: Multiple Vitamins Tab PO SCH (09:48)
--- NOTE | 2018-07-29 11:06 | CP.PCM.PN ---
Subjective - Date & Time of Evaluation Date of Evaluation: 07/29/18 Time of Evaluation: 11:05 - Subjective Subjective: TREMORS AND UNSTEADY GAIT NO DYSPHAGIA FOR REHAB Objective - Vital Signs/Intake and Output Vital Signs (last 24 hours): Temp Pulse Resp BP Pulse Ox 98.4 F 88 20 126/74 97 07/29/18 07:00 07/29/18 07:00 07/29/18 07:00 07/29/18 07:00 07/29/18 07:00 - Medications Medications: Current Medications Clonidine HCl (Catapres) 0.1 mg PO Q4H PRN PRN Reason: Symptoms of alcohol withdrawl Folic Acid (Folic Acid) 1 mg PO DAILY [facility] Last Admin: 07/29/18 09:47 Dose: 1 mg Lorazepam (Ativan) 1 mg IVP Q4H PRN PRN Reason: Symptoms of alcohol withdrawl Last Admin: 07/29/18 00:58 Dose: 1 mg Metoclopramide HCl (Reglan) 10 mg IVP Q8H [facility] Last Admin: 07/29/18 04:45 Dose: Not Given Multivitamins (Hexavitamin) 1 tab PO DAILY [facility] Last Admin: 07/29/18 09:48 Dose: 1 tab Nicotine (Nicoderm Cq) 1 patch TD DAILY [facility] Last Admin: 07/29/18 09:48 Dose: 1 patch Propranolol HCl (Inderal) 10 mg PO BID [facility] Last Admin: 07/29/18 09:47 Dose: 10 mg Thiamine HCl (Vitamin B1 Tab) 100 mg PO DAILY [facility] Last Admin: 07/29/18 09:47 Dose: 100 mg Trazodone HCl (Desyrel) 50 mg PO HS PRN PRN Reason: Insomnia Last Admin: 07/28/18 22:06 Dose: 50 mg - Labs Labs: 07/26/18 13:52 07/26/18 13:52 PT 14.0 SECONDS (9.7-12.2) H 07/20/18 07:09 INR 1.3 07/20/18 07:09 Assessment and Plan (1) Dysphagia Status: Acute (2) CAD (coronary artery disease) Status: Acute (3) Cirrhosis of liver Status: Acute (4) Diabetes Status: Acute (5) HTN (hypertension) Status: Acute
[2018-07-30] MEDS: Multiple Vitamins Tab PO SCH (10:04)
--- NOTE | 2018-07-30 12:40 | CP.PCM.PN ---
Subjective - Date & Time of Evaluation Date of Evaluation: 07/30/18 Time of Evaluation: 12:39 - Subjective Subjective: PT IS UNSTEADY ON WALKING , NEEDS SUPPORT STILL HAS TREMORS VS STABLE PT WILL NEED REHAB PT LIVES ALONE AND PHYSICALLY WEAK TO BE ALONE Objective - Vital Signs/Intake and Output Vital Signs (last 24 hours): Temp Pulse Resp BP Pulse Ox 99.1 F 69 20 111/77 97 07/30/18 07:00 07/30/18 07:00 07/30/18 07:00 07/30/18 07:00 07/30/18 07:00 - Medications Medications: Current Medications Clonidine HCl (Catapres) 0.1 mg PO Q4H PRN PRN Reason: Symptoms of alcohol withdrawl Folic Acid (Folic Acid) 1 mg PO DAILY [facility] Last Admin: 07/30/18 10:04 Dose: 1 mg Lorazepam (Ativan) 1 mg IVP Q4H PRN PRN Reason: Symptoms of alcohol withdrawl Last Admin: 07/29/18 23:05 Dose: 1 mg Multivitamins (Hexavitamin) 1 tab PO DAILY [facility] Last Admin: 07/30/18 10:04 Dose: 1 tab Nicotine (Nicoderm Cq) 1 patch TD DAILY [facility] Last Admin: 07/30/18 10:04 Dose: 1 patch Propranolol HCl (Inderal) 10 mg PO BID [facility] Last Admin: 07/30/18 10:04 Dose: 10 mg Thiamine HCl (Vitamin B1 Tab) 100 mg PO DAILY [facility] Last Admin: 07/30/18 10:03 Dose: 100 mg Trazodone HCl (Desyrel) 50 mg PO HS PRN PRN Reason: Insomnia Last Admin: 07/28/18 22:06 Dose: 50 mg - Labs Labs: 07/26/18 13:52 07/26/18 13:52 PT 14.0 SECONDS (9.7-12.2) H 07/20/18 07:09 INR 1.3 07/20/18 07:09 Assessment and Plan (1) Dysphagia Status: Acute (2) CAD (coronary artery disease) Status: Acute (3) Cirrhosis of liver Status: Acute (4) Diabetes Status: Acute (5) HTN (hypertension) Status: Acute
[2018-07-31] MEDS: Multiple Vitamins Tab PO SCH (09:22)
--- NOTE | 2018-07-31 12:29 | CP.PCM.PN ---
Subjective - Date & Time of Evaluation Date of Evaluation: 07/31/18 Time of Evaluation: 12:29 - Subjective Subjective: PT IS UNSTEADY ON WALKING , NEEDS SUPPORT STILL HAS TREMORS VS STABLE PT WILL NEED REHAB PT LIVES ALONE AND PHYSICALLY WEAK TO BE ALONE Objective - Vital Signs/Intake and Output Vital Signs (last 24 hours): Temp Pulse Resp BP Pulse Ox 97.8 F 69 18 108/71 98 07/31/18 07:15 07/31/18 07:15 07/31/18 07:15 07/31/18 07:15 07/31/18 07:15 - Medications Medications: Current Medications Clonidine HCl (Catapres) 0.1 mg PO Q4H PRN PRN Reason: Symptoms of alcohol withdrawl Folic Acid (Folic Acid) 1 mg PO DAILY [facility] Last Admin: 07/31/18 09:22 Dose: 1 mg Lorazepam (Ativan) 1 mg IVP Q4H PRN PRN Reason: Symptoms of alcohol withdrawl Last Admin: 07/30/18 22:19 Dose: 1 mg Multivitamins (Hexavitamin) 1 tab PO DAILY [facility] Last Admin: 07/31/18 09:22 Dose: 1 tab Nicotine (Nicoderm Cq) 1 patch TD DAILY [facility] Last Admin: 07/31/18 09:21 Dose: 1 patch Propranolol HCl (Inderal) 10 mg PO BID [facility] Last Admin: 07/31/18 09:22 Dose: 10 mg Thiamine HCl (Vitamin B1 Tab) 100 mg PO DAILY [facility] Last Admin: 07/31/18 09:21 Dose: 100 mg Trazodone HCl (Desyrel) 50 mg PO HS PRN PRN Reason: Insomnia Last Admin: 07/28/18 22:06 Dose: 50 mg - Labs Labs: 07/26/18 13:52 07/26/18 13:52 PT 14.0 SECONDS (9.7-12.2) H 07/20/18 07:09 INR 1.3 07/20/18 07:09 Assessment and Plan (1) Dysphagia Status: Acute (2) CAD (coronary artery disease) Status: Acute (3) Cirrhosis of liver Status: Acute (4) Diabetes Status: Acute (5) HTN (hypertension) Status: Acute
[2018-07-31 18:08] VITALS: RESP 20
[2018-08-01] MEDS: Multiple Vitamins Tab PO SCH (09:20)
[2018-08-01 16:05] VITALS: BP 107/63; PULSE 79; TEMP 97.4; O2SAT 99
--- NOTE | 2018-08-02 07:09 | CP.PCM.DIS ---
Provider - Provider Date of Admission: 07/12/18 15:32 Attending physician: Alexandria Flynn MD Consults: 07/14/18 13:13 Internal Medicine Consult Routine Comment: Consulting Provider: Alexandria Flynn Consulting Physician: Alexandria Flynn Reason for Consult: DT, need IV fluids, swallowing problem Time Spent in preparation of Discharge (in minutes): 35 Diagnosis - Discharge Diagnosis (1) Dysphagia Status: Acute (2) CAD (coronary artery disease) Status: Acute (3) Cirrhosis of liver Status: Acute Priority: High (4) Diabetes Status: Acute (5) HTN (hypertension) Status: Acute Hospital Course - Lab Results Lab Results: Most Recent Lab Values WBC 4.5 K/uL (4.8-10.8) L 07/26/18 13:52 RBC 3.67 Mil/uL (4.40-5.90) L 07/26/18 13:52 Hgb 13.1 g/dL (12.0-18.0) 07/26/18 13:52 Hct 37.6 % (35.0-51.0) 07/26/18 13:52 MCV 102.4 fL (80.0-94.0) H 07/26/18 13:52 MCH 35.6 pg (27.0-31.0) H 07/26/18 13:52 MCHC 34.8 g/dL (33.0-37.0) 07/26/18 13:52 RDW 13.6 % (11.5-14.5) 07/26/18 13:52 Plt Count 122 K/uL (130-400) L D 07/26/18 13:52 MPV 10.4 fL (7.2-11.7) 07/26/18 13:52 Neut % (Auto) 66.0 % (50.0-75.0) 07/26/18 13:52 Lymph % (Auto) 16.9 % (20.0-40.0) L 07/26/18 13:52 [place] % (Auto) 14.1 % (0.0-10.0) H 07/26/18 13:52 Eos % (Auto) 1.7 % (0.0-4.0) 07/26/18 13:52 Baso % (Auto) 1.3 % (0.0-2.0) 07/26/18 13:52 Neut # (Auto) 2.9 K/uL (1.8-7.0) 07/26/18 13:52 Lymph # (Auto) 0.8 K/uL (1.0-4.3) L 07/26/18 13:52 [place] # (Auto) 0.6 K/uL (0.0-0.8) 07/26/18 13:52 Eos # (Auto) 0.1 K/uL (0.0-0.7) 07/26/18 13:52 Baso # (Auto) 0.1 K/uL (0.0-0.2) 07/26/18 13:52 Differential Comment 07/12/18 10:29 PT 14.0 SECONDS (9.7-12.2) H 07/20/18 07:09 INR 1.3 07/20/18 07:09 Sodium 133 mmol/L (132-148) 07/26/18 13:52 Potassium 4.1 mmol/L (3.6-5.2) 07/26/18 13:52 Chloride 99 mmol/L (98-107) 07/26/18 13:52 Carbon Dioxide 28 mmol/L (22-30) 07/26/18 13:52 Anion Gap 11 (10-20) 07/26/18 13:52 BUN 11 mg/dL (9-20) 07/26/18 13:52 Creatinine 0.6 mg/dL (0.8-1.5) L 07/26/18 13:52 Est GFR ( Amer) > 60 07/26/18 13:52 Est GFR (Non-Af Amer) > 60 07/26/18 13:52 POC Glucose (mg/dL) 103 mg/dL (65-110) 07/27/18 06:33 Random Glucose 126 mg/dL (75-110) H 07/26/18 13:52 Calcium 8.1 mg/dl (8.6-10.4) L 07/26/18 13:52 Phosphorus 4.1 mg/dL (2.5-4.5) 07/26/18 13:52 Magnesium 1.6 mg/dL (1.6-2.3) 07/26/18 13:52 Total Bilirubin 2.8 mg/dL (0.2-1.3) H 07/26/18 13:52 AST 141 U/L (17-59) H 07/26/18 13:52 ALT 77 U/L (21-72) H 07/26/18 13:52 Alkaline Phosphatase 212 U/L (38-126) H 07/26/18 13:52 Total Protein 7.4 g/dL (6.3-8.3) 07/26/18 13:52 Albumin 3.4 g/dL (3.5-5.0) L 07/26/18 13:52 Globulin 4.0 gm/dL (2.2-3.9) H 07/26/18 13:52 Albumin/Globulin Ratio 0.9 (1.0-2.1) L 07/26/18 13:52 Urine Color [place] (YELLOW) 07/12/18 11:15 Urine Clarity Hazy (Clear) 07/12/18 11:15 Urine pH 5.0 (5.0-8.0) 07/12/18 11:15 Ur Specific [place] 1.021 (1.003-1.030) 07/12/18 11:15 Urine Protein 1+ mg/dL (NEGATIVE) H 07/12/18 11:15 Urine Glucose (UA) Normal mg/dL (Normal) 07/12/18 11:15 Urine Ketones Negative mg/dL (NEGATIVE) 07/12/18 11:15 Urine Blood 1+ (NEGATIVE) H 07/12/18 11:15 Urine Nitrate Negative (NEGATIVE) 07/12/18 11:15 Urine Bilirubin 2+ (NEGATIVE) H 07/12/18 11:15 Urine Urobilinogen 4.0 mg/dL (0.2-1.0) 07/12/18 11:15 Ur Leukocyte Esterase Neg [place]/uL (Negative) 07/12/18 11:15 Urine WBC (Auto) 2 /hpf (0-5) 07/12/18 11:15 Urine RBC (Auto) 7 /hpf (0-3) H 07/12/18 11:15 Ur Squamous Epith Cells 1 /hpf (0-5) 07/12/18 11:15 Hyaline Casts 3-5 /lpf (0-2) H 07/12/18 11:15 Urine Opiates Screen Negative (NEGATIVE) 07/12/18 11:15 Urine Methadone Screen Negative (NEGATIVE) 07/12/18 11:15 Ur Barbiturates Screen Negative (NEGATIVE) 07/12/18 11:15 Ur Phencyclidine Scrn Negative (NEGATIVE) 07/12/18 11:15 Ur Amphetamines Screen Negative (NEGATIVE) 07/12/18 11:15 U Benzodiazepines Scrn Negative (NEGATIVE) 07/12/18 11:15 U Oth Cocaine Metabols Negative (NEGATIVE) 07/12/18 11:15 U Cannabinoids Screen Negative (NEGATIVE) 07/12/18 11:15 Alcohol, Quantitative 300 mg/dl (0-10) H 07/12/18 10:29 - Hospital Course Hospital Course: PT WAS TRANSFERRED FROM DETOX AFTER HAVING SEVERE DYSPHAGIA PT WAS ADMITTED FOR DETOX WITH DTS PT IS POOR HISTORIAN . SINCE IN THE HOSPITAL PT HAS DEVELOPED DYSPHAGIA TO ALL FOODS NO PREVIOUS H/O DYSPHAGIA HAS H/O CIRRHOSIS OF LIVER SEC ALCOHOL. WAS ADMITTED LAST YEAR WITH RESP FAILURE HAD CATH DONE SHOWED PATENT CORONARY GRAFT 3, CABG FEW YEARS AGO PT DRINKS ALCOHOL DAILY AND THIS ADMISSION DRAMK NYQUIL DYSPHAGIA PERSISTED EGD GASTRITIS , N OBSTRUCTING LESION PT CONTINOUS TO HAVE TREMORS PT WAS DENIED REHAB WENT HOME Discharge Exam - Head Exam Head Exam: ATRAUMATIC, NORMAL INSPECTION, NORMOCEPHALIC Discharge Plan - Discharge Medications Prescriptions: traZODone [Desyrel] 50 mg PO HS PRN 5 Days tab PRN Reason: Insomnia Folic Acid 1 mg PO DAILY 30 Days tab Multivitamins [Hexavitamin] 1 tab PO DAILY 30 Days tab Propranolol [Inderal] 10 mg PO BID 30 Days tab Nicotine 21 mg/24 hr [Nicoderm Cq] 1 patch TD DAILY 30 Days patch Thiamine [Vitamin B1 Tab] 100 mg PO DAILY 30 Days tab - Follow Up Plan Condition: STABLE Disposition: HOME/ ROUTINE Instructions: Alcohol Abuse and Alcoholism (DC), Dysphagia (DC) Additional Instructions: Follow up with Dr Flynn in 1 week Please follow labs Resume all medications Activity as tolerated Call Dr. Flynn or go to the emergency room if symptoms return or worsen Discuss with patient at the bedside who agree and verbalized understanding
== END 2018-08-01 18:28 | disposition home or self-care (01) | DRG 897 ==
LOC: C.ER 08:56 → C.7D 15:32 → C.6T 07-14 20:44
PROVIDERS: ADMIT Internal Medicine Cardiovascular Disease; ATTEND Internal Medicine Cardiovascular Disease
PROC: GZ56ZZZ Individual Psychotherapy, Supportive (ICD-10-PCS; 2018-07-12)
PROC: 0DB78ZX Excision of Stomach, Pylorus, Via Natural or Artificial Opening Endoscopic, Diagnostic (ICD-10-PCS; principal; 2018-07-20 11:36)
DX: F10.231 Alcohol dependence with withdrawal delirium (principal); I85.00 Esophageal varices without bleeding; I10 Essential (primary) hypertension; F41.9 Anxiety disorder, unspecified; I25.10 Atherosclerotic heart disease of native coronary artery without angina pectoris; E11.9 Type 2 diabetes mellitus without complications; K70.10 Alcoholic hepatitis without ascites; K29.70 Gastritis, unspecified, without bleeding; Z95.1 Presence of aortocoronary bypass graft; Z87.891 Personal history of nicotine dependence; R13.10 Dysphagia, unspecified; J44.9 Chronic obstructive pulmonary disease, unspecified; K70.30 Alcoholic cirrhosis of liver without ascites; D69.6 Thrombocytopenia, unspecified; Y90.8 Blood alcohol level of 240 mg/100 ml or more